=== PATIENT | female | born 1930 | race Caucasian/White ===

== ENCOUNTER 2018-01-15 14:38 | Inpatient (IN) ==
[2018-01-15] MEDS ORDERED: 0.9 % SODIUM CHLORIDE 1,000 ML IV ONE (14:45)
--- NOTE | 2018-01-15 14:52 | Emergency Department Note ---
General Adult HPI - General Chief complaint: Fall Stated complaint: abdominal pain, knee pain Time Seen by Provider: 01/15/18 14:50 Source: EMS Mode of arrival: EMS Limitations: no limitations - History of Present Illness HPI Narrative: Patient began having pain in her right lower abdomen where she has a ventral hernia this morning. Recently she was on the toilet and slipped off and fell. She denies nausea and vomiting. - Related Data Home Medications Medication Instructions Recorded Confirmed amlodipine 10 mg tablet 10 mg PO QDAY 08/29/15 01/15/18 cholestyramine (with sugar) 4 gram 4 g PO TID each 08/29/15 01/15/18 oral powder losartan 100 mg tablet 100 mg PO QDAY 08/29/15 01/15/18 magnesium hydroxide 400 mg/5 mL 30 ml PO QHS PRN 08/29/15 01/15/18 oral suspension calcium carbonate 500 mg calcium 1,000 mg PO TID tab 12/26/15 01/15/18 (1,250 mg) tablet acetaminophen 650 mg rectal 650 mg MI ONCE PRN 05/19/16 01/15/18 suppository hydralazine 10 mg tablet 10 mg PO ONCE PRN tab 05/19/16 01/15/18 bisacodyl 10 mg rectal suppository 10 mg MI ONCE PRN 03/24/17 01/15/18 cranberry fruit concentrate 450 mg 450 mg PO BID cap 03/24/17 01/15/18 capsule lactobacillus combination no.8 3 4,000 mmu cells PO QDAY 03/24/17 01/15/18 billion cell capsule magnesium oxide 400 mg tablet 400 mg PO BID 03/24/17 01/15/18 potassium citrate ER 10 mEq (1,080 40 meq PO BID tab 03/24/17 01/15/18 mg) tablet,extended release torsemide 20 mg tablet 40 mg PO QDAY 03/24/17 01/15/18 quetiapine 100 mg tablet 75 mg PO QHS tab 09/23/17 01/15/18 Previous Rx's Medication Instructions Recorded cholecalciferol (vitamin D3) 2,000 2,000 unit PO QDAY 30 Days #30 cap 09/24/15 unit capsule lorazepam 1 mg tablet 1 mg PO QAM #45 tab 01/03/18 hydrocodone 5 mg-acetaminophen 325 1 tab PO Q8H PRN #30 tab 01/09/18 mg tablet Allergies Allergy/AdvReac Type Severity Reaction Status Date / Time ofloxacin [OFLOXACIN] Allergy Severe STATES Verified 09/23/17 10:37 STARTS WITH ALL OVER RASH AND THEN SOB Amoxicillin [AMOXICILLIN] Allergy Unknown Unknown Verified 09/23/17 10:37 benazepril [BENAZEPRIL] Allergy Unknown Unknown Verified 09/23/17 10:37 bisoprolol [BISOPROLOL] Allergy Unknown Unknown Verified 09/23/17 10:37 cephalexin [CEPHALEXIN] Allergy Unknown Unknown Verified 09/23/17 10:37 clarithromycin Allergy Unknown Unknown Verified 09/23/17 10:37 [CLARITHROMYCIN] clindamycin [CLINDAMYCIN] Allergy Unknown Unknown Verified 09/23/17 10:37 Dicloxacillin [DICLOXACILLIN] Allergy Unknown Unknown Verified 09/23/17 10:37 diltiazem [DILTIAZEM] Allergy Unknown Unknown Verified 09/23/17 10:37 doxycycline [DOXYCYCLINE] Allergy Unknown Unknown Verified 09/23/17 10:37 hydrochlorothiazide Allergy Unknown Unknown Verified 09/23/17 10:37 [HYDROCHLOROTHIAZIDE] Labetalol [LABETALOL] Allergy Unknown Unknown Verified 09/23/17 10:37 levothyroxine sodium Allergy Unknown Unknown Verified 09/23/17 10:37 [LEVOTHYROXINE SODIUM] nitrofurantoin Allergy Unknown Unknown Verified 09/23/17 10:37 [NITROFURANTOIN] penicillin V [PENICILLIN V] Allergy Unknown Unknown Verified 09/23/17 10:37 pentoxifylline Allergy Unknown Unknown Verified 09/23/17 10:37 [PENTOXIFYLLINE] Review of Systems All systems ED: reviewed and negative except as stated. 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) Hypertensive renal disease (Chronic) Recurrent urinary tract infection (Chronic) CKD (chronic kidney disease), stage III (Chronic) Ventral hernia (Chronic) Brain tumor (Chronic) Urinary tract infection (Chronic) Urinary incontinence (Chronic) Spinal stenosis of lumbar region (Chronic) Irritable bowel syndrome (Chronic) Hypothyroidism (Chronic) Hypokalemia (Chronic) Hypertension (Chronic) Encephalitis (Chronic) Dermatitis (Chronic) Dementia (Chronic) Alzheimer disease (Chronic) Past Surgical History (Last Reviewed 09/23/17 @ 11:13 by Elle Villanueva MD) History of knee replacement (Chronic) H/O: hysterectomy (Chronic) History of hip surgery (Chronic) S/P hernia surgery (Chronic) H/O brain surgery (Chronic) Medical history: Reports: dementia, hypertension, renal disease, thyroid disease , other (brain tumor.recurrent urinary tract infection. Irritable bowel syndrome. Hypokalemia. Encephalitis. Alzheimer's disease. ) Surgical history ED: Reports: cholecystectomy, hysterectomy - Social History smoking status: Never smoker Physical Exam Limitations: no limitations General appearance: alert Head: atraumatic Eye: Present: normal appearance ENT: normal exam Neck: Present: normal inspection Chest: Present: normal inspection Respiratory: Present: normal lung sounds bilaterally Cardiovascular: Present: regular rate, normal rhythm, normal heart sounds Abdominal: Present: soft, distention, tenderness, hernia Abdominal tenderness: Present: RLQ, moderate Neurological: Present: alert Psychiatric: Present: normal affect, normal mood Skin: Present: warm, dry, intact Course Vital Signs Temperature 97.2 F 01/15/18 14:39 Pulse Rate 71 01/15/18 14:39 Respiratory Rate 14 01/15/18 14:39 Blood Pressure 160/104 01/15/18 14:39 Pulse Oximetry (%) 96 01/15/18 14:39 Temperature 98.2 F 01/16/18 04:01 Pulse Rate 87 01/16/18 04:01 Respiratory Rate 22 01/16/18 04:01 Blood Pressure 137/88 01/16/18 04:01 Pulse Oximetry (%) 97 01/16/18 04:01 Medical Decision Making - [facility] Narrative Medical decision making narrative: This patient has a very large incarcerated abdominal wall hernia without evidence of bowel obstruction. Is quite tender and nonreducible. Spoke with Dr. Martinez a surgeon he will come evaluate the patient. - Lab Data Lab results reviewed: Yes I reviewed the patient's lab results. Result diagrams: 01/16/18 04:00 01/16/18 04:00 Lab Results 01/15/18 01/15/18 01/15/18 Range/Units 14:57 14:57 17:15 WBC 7.2 (4.5-11.0) K/mcL RBC 5.10 (4.00-5.20) M/mcL Hgb 16.2 H (12.0-15.0) g/dL Hct 48.7 H (36.0-48.0) % POC Hct 50.0 H (36.0-48.0) % MCV 95.7 (80.0-100.0) fL MCH 31.7 (26.0-34.0) pg MCHC 33.2 (31.0-36.0) g/dL RDW 13.9 (11.5-14.5) % Plt Count 180 (140-440) K/mcL MPV 8.2 (7.4-10.4) fL Gran % 71.4 (38.0-78.0) % Lymph % (Auto) 17.2 (15.5-49.0) % [place] % (Auto) 8.3 (1.0-12.0) % Eos % (Auto) 2.7 (0.0-7.0) % Baso % (Auto) 0.4 (0.0-2.0) % Gran # 5.1 (1.8-8.0) K/mcL Lymph # (Auto) 1.2 L (1.5-4.8) K/mcL [place] # (Auto) 0.6 (0.1-0.9) K/mcL Eos # (Auto) 0.2 (0.0-0.7) K/mcL Baso # (Auto) 0 (0.0-0.3) K/mcL POC Sodium 139 (133-145) mmol/L Sodium 139 (133-145) mmol/L POC Potassium 4.3 (3.3-5.1) mmol/L Potassium 4.3 (3.3-5.1) mmol/L POC Chloride 103 (96-108) mmol/L Chloride 100 (96-108) mmol/L Carbon Dioxide 28 (22-30) mmol/L POC Total CO2 26 (22-30) mmol/L Anion Gap 11.0 (8-16) POC BUN 35 H (8-23) mg/dl BUN 31 H (8-23) mg/dl Creatinine 1.3 H (0.6-1.1) mg/dl POC Creatinine 1.4 H (0.6-1.1) mg/dl GFR Calculation 37 Glucose 148 H (70-105) mg/dL POC Glucose 147 H (70-105) mg/dL Calcium 9.0 (8.6-10.4) mg/dl POC WB Ioniz Calcium 1.07 L (1.16-1.32) mmol/L Total Bilirubin 0.2 (0.0-1.0) mg/dL AST 20 (0-37) U/l ALT 30 (0-40) U/l Alkaline Phosphatase 75 (39-117) U/L Total Protein 6.6 (5.9-8.4) gm/dL Albumin 3.8 (3.2-5.2) gm/dL Globulin 2.8 (2.2-3.7) gm/dL Albumin/Globulin Ratio 1.4 (1.0-2.3) Urine Color Straw Urine Appearance Hazy Urine pH 7.0 (5.0-9.0) Ur Specific [place] 1.010 (1.000-1.035) Urine Protein Neg (NEG) mg/dL Urine Glucose (UA) Negative (NEG) mg/dL Urine Ketones Neg (NEG) mg/dL Urine Occult Blood Neg (<0.03) mg/dL Urine Nitrate Neg (NEG) Urine Bilirubin Neg (NEG) mg/dL Urine Urobilinogen Neg (NEG) mg/dL Ur Leukocyte Esterase 500 A (NEG) /uL Urine RBC 2 H (0-1) /hpf Urine WBC 126 H (0-4) /hpf Ur Squamous Epith Cells 0 (0-4) /hpf Urine Bacteria 0 (0) /hpf Urine Mucus Few (0) /hpf Ur Culture Indicated? Yes - Radiology Data Radiology results reviewed: Yes I reviewed the patient's radiology results. Disposition Pt seen by BELL PERSON/PA only: No Clinical Impression: Ventral hernia Disposition: Xfer As Inpt ([facility]) Condition: Fair
[2018-01-15] MEDS ORDERED: ONDANSETRON 4 MG/2 ML VIAL ONE (15:04)
[2018-01-15] MEDS: ONDANSETRON 4 MG/2 ML VIAL IV ONE ×2 (15:08→15:09)
[2018-01-15] MEDS: HYDROmorphone 2 MG/ML VIAL IV PRN (15:09)
[2018-01-15 15:32] LABS: Basophils # (Auto) 0 K/mcL (0.0-0.3); Basophils % (Auto) 0.4 % (0.0-2.0); Eosinophils # (Auto) 0.2 K/mcL (0.0-0.7); Eosinophils % (Auto) 2.7 % (0.0-7.0); Granulocytes % (Auto) 71.4 % (38.0-78.0); Lymphocytes # (Auto) 1.2 K/mcL (1.5-4.8); Lymphocytes % (Auto) 17.2 % (15.5-49.0); Mean Cell Volume 95.7 fL (80.0-100.0); Mean Corpuscular HGB Conc 33.2 g/dL (31.0-36.0); Mean Corpuscular Hemoglobin 31.7 pg (26.0-34.0); Monocytes # (Auto) 0.6 K/mcL (0.1-0.9); Monocytes % (Auto) 8.3 % (1.0-12.0); Platelet Count 180 K/mcL (140-440); Red Cell Distribution Width 13.9 % (11.5-14.5)
[2018-01-15 15:54] LABS: ALT/SGPT 30 U/l (0-40); Albumin 3.8 gm/dL (3.2-5.2); Albumin/Globulin Ratio 1.4 (1.0-2.3); Alkaline Phosphatase 75 U/L (39-117); Blood Urea Nitrogen 31 mg/dl (8-23)
--- NOTE | 2018-01-15 16:09 | Cat Scan Report ---
CLINICAL INFORMATION: Abdominal pain and large ventral hernia COMPARISON: Abdomen and pelvic CT from nearly 2 years prior 03/10/2016. TECHNIQUE: 0.625 mm helical slices were obtained from the mid heart through the subtrochanteric regions. Following reconstruction, 2.5 mm sagittal, coronal and axial reformatted images were processed and reviewed at bone and soft tissue windows.The exam was performed using radiation dose optimization techniques including, but not limited to, automated exposure control, adjustment of the mA and/or kV according to patient size and use of iterative reconstruction technique. FINDINGS: Moderate cardiomegaly is unchanged. Moderate pericardial effusion has increased. Mild airspace disease in both peripheral lower lobes more likely represents atelectasis than developing infiltrates. No pleural effusions. Images through the abdomen show the noncontrasted liver to be unremarkable. Gallbladder and bile ducts are normal - CBD is 5 mm. Moderate atrophy of both kidneys with extensive vertebral medullary scarring is unchanged. Both noncontrasted adrenal glands, spleen, pancreas and aorta are unremarkable. Images through the pelvis show urinary bladder to be normal. Hysterectomy /oophorectomy changes are appreciated. Massive ventral wall hernia repair originating in the right inferior periumbilical region has increased in size from 15 cm to [address] nearly 2 years ago. The hernia contains both hypermobile cecum LAD terminal ileum and also a loop of small bowel. There is moderate edema in the mesentery of the hernia sac which could indicate ischemia/incarceration. There is mild dilatation of the small bowel just prior to the hernia entry site; however, the more proximal small bowel stomach are normal. There is no free air. Urinary bladder is unremarkable. Bone windows show multiple osteoporotic compression fractures which are stable radiographically from the previous study. The most severe, at T11, shows 50% loss of vertebral height. IMPRESSION: 1. Enlarging massive ventral wall hernia originating from abdominal wall defect in the right periumbilical region. It has increased from 15 cm to 20 cm since the comparison CT nearly 2 years prior. It contains a segment of hypermobile cecum/terminal ileum and a separate loop of small bowel. There is edema in the herniated mesentery within the sac suggesting the possibility of ischemia/incarceration. No definite evidence of bowel obstruction however. 2. Moderate cardiomegaly with moderate pericardial effusion - increasing 3. Moderate bilateral renal atrophy and extensive scarring in both kidneys compatible with remote infections or infarcts. No change 4. Multiple chronic osteoporotic compression fractures - most severe at T11 - no change radiographically Interpreted and Authenticated by: Bryan Pearson 01/15/18
[2018-01-15 17:47] LABS: Appearance,Urine HAZY; Bacteria,Urine 0 /hpf (0); Bilirubin,Urine NEG (NEG); Color,Urine STRAW; Glucose,Urine (UA) NEGATIVE (NEG); Leukocyte Esterase,Urine 500 /uL (NEG); Mucus,Urine FEW /hpf (0); Protein,Urine NEG (NEG); Urine Blood NEG mg/dL (<0.03); Urine RBC 2 /hpf (0-1); Urine Squamous Epithelial Cell 0 /hpf (0-4); Urine WBC 126 /hpf (0-4); Urobilinogen,Urine NEG (NEG)
[2018-01-15] MEDS ORDERED: ERTAPENEM 1 GM in 0.9 % SODIUM CHLORIDE 50 ML IV ONE (19:05)
--- NOTE | 2018-01-15 19:11 | Internal Medicine Consult Note ---
Medical - CN: HPI - Data of Consult Consult date: 01/15/18 Requesting Physician: Chelsey Martinez MD Primary Care Provider: Ventura Melendez Family Provider: Ventura Melendez - Consult Narrative Reason for consult: Medical evaluation in patient with incarcerated ventral hernia History of present illness: The patient is an 87-year-old female with a history of hypertension, chronic kidney disease stage III, congestive heart failure which is diastolic in nature , Alzheimer's disease, treated hypothyroidism presents to the emergency department from [facility] with abdominal pain. History is obtained in speaking with Dr. Martinez the consulting surgeon, Dr. Alvarez the ED physician, as well as the patient and her daughter. Records from her living facility are reviewed and summarized below, old records from this facility are obtained and summarized below. Family the patient had a fall today, but because of ongoing abdominal pain was brought to the emergency department for further evaluation. The patient has a known large ventral hernia, present for at least the last 2 years. When she first arrived, she was experiencing significant abdominal pain per Dr. Alvarez's report, and she did receive 0.5 mg of hydromorphone due to the ongoing pain. CT scan of the abdomen reveals incarcerated hernia, some mesenteric edema concerning for mesenteric compromise. When I and Dr. Martinez see the patient, she is complaining of abdominal discomfort, the exam is a bit equivocal, though she still is likely sparing seen some affect from hydromorphone. In regards to her congestive heart failure, echocardiogram in July 2016 showed left ventricular hypertrophy with normal systolic function. Patient currently denies any chest pain, chest tightness or squeezing. She denies any shortness of breath. She can sleep on her back without becoming short of breath , does not arise at night with dyspnea. She is noted no lower extremity edema. She has no history of coronary artery disease, no history of myocardial infarction. This is confirmed by her daughter. No history of lung disease, specifically no history of asthma, emphysema. In regards to her abdomen, she is complaining of discomfort, though tends to minimize her symptoms. Uncomfortable for her to try to bend at the waist and sit up in the gurney. She's had no nausea or vomiting. Otherwise, she denies to me any fevers or chills, headache, vision changes, cough or sputum production, focal neurologic symptoms, history of stroke or TIA (confirmed by her daughter). She has allergies listed to multiple antibiotics, however the patient is unaware what the reactions are. The only reaction the chart of significance which is listed is hives with ofloxacin. The remainder are listed as unknown. CC: Ventura Melendez M.D., Chelsey Martinez M.D. All systems: reviewed and no additional remarkable complaints except as stated Medical - CN: PMH Medical history: Ventral hernia (Chronic) Hypertension (Chronic) Hypertensive renal disease (Chronic) CKD (chronic kidney disease), stage III (Chronic) Chronic diastolic congestive heart failure Hypothyroidism (Chronic) Dementia (Chronic) Recurrent urinary tract infection (Chronic) H/O ESBL (extended spectrum beta-lactamase) producing bacteria infection ( Chronic) H/O Brain tumor (Chronic) Spinal stenosis of lumbar region (Chronic) Irritable bowel syndrome (Chronic) H/O Encephalitis (Chronic) Surgical history: History of knee replacement (Chronic) H/O: hysterectomy (Chronic) History of hip surgery (Chronic) S/P hernia surgery (Chronic) H/O brain surgery (Chronic)-brain tumor Pertinent family history: No premature coronary disease. Social history: Lives at [facility]. Never smoked, does not drink alcohol. Medical - CN: Meds Home Medications Medication Instructions Recorded Confirmed Type amlodipine 10 mg tablet 10 mg PO QDAY 08/29/15 01/15/18 History cholestyramine (with sugar) 4 gram 4 g PO TID each 08/29/15 01/15/18 History oral powder losartan 100 mg tablet 100 mg PO QDAY 08/29/15 01/15/18 History magnesium hydroxide 400 mg/5 mL 30 ml PO QHS PRN 08/29/15 01/15/18 History oral suspension cholecalciferol (vitamin D3) 2,000 2,000 unit PO QDAY 30 Days #30 cap 09/24/15 01/15/18 Rx unit capsule calcium carbonate 500 mg calcium 1,000 mg PO TID tab 12/26/15 01/15/18 History (1,250 mg) tablet acetaminophen 650 mg rectal 650 mg AL ONCE PRN 05/19/16 01/15/18 History suppository hydralazine 10 mg tablet 10 mg PO ONCE PRN tab 05/19/16 01/15/18 History bisacodyl 10 mg rectal suppository 10 mg AL ONCE PRN 03/24/17 01/15/18 History cranberry fruit concentrate 450 mg 450 mg PO BID cap 03/24/17 01/15/18 History capsule lactobacillus combination no.8 3 4,000 mmu cells PO QDAY 03/24/17 01/15/18 History billion cell capsule magnesium oxide 400 mg tablet 400 mg PO BID 03/24/17 01/15/18 History potassium citrate ER 10 mEq (1,080 40 meq PO BID tab 03/24/17 01/15/18 History mg) tablet,extended release torsemide 20 mg tablet 40 mg PO QDAY 03/24/17 01/15/18 History quetiapine 100 mg tablet 75 mg PO QHS tab 09/23/17 01/15/18 History lorazepam 1 mg tablet 1 mg PO QAM #45 tab 01/03/18 01/15/18 Rx hydrocodone 5 mg-acetaminophen 325 1 tab PO Q8H PRN #30 tab 01/09/18 01/15/18 Rx mg tablet Allergies Allergy/AdvReac Type Severity Reaction Status Date / Time ofloxacin [OFLOXACIN] Allergy Severe STATES Verified 09/23/17 10:37 STARTS WITH ALL OVER RASH AND THEN SOB Amoxicillin [AMOXICILLIN] Allergy Unknown Unknown Verified 09/23/17 10:37 benazepril [BENAZEPRIL] Allergy Unknown Unknown Verified 09/23/17 10:37 bisoprolol [BISOPROLOL] Allergy Unknown Unknown Verified 09/23/17 10:37 cephalexin [CEPHALEXIN] Allergy Unknown Unknown Verified 09/23/17 10:37 clarithromycin Allergy Unknown Unknown Verified 09/23/17 10:37 [CLARITHROMYCIN] clindamycin [CLINDAMYCIN] Allergy Unknown Unknown Verified 09/23/17 10:37 Dicloxacillin [DICLOXACILLIN] Allergy Unknown Unknown Verified 09/23/17 10:37 diltiazem [DILTIAZEM] Allergy Unknown Unknown Verified 09/23/17 10:37 doxycycline [DOXYCYCLINE] Allergy Unknown Unknown Verified 09/23/17 10:37 hydrochlorothiazide Allergy Unknown Unknown Verified 09/23/17 10:37 [HYDROCHLOROTHIAZIDE] Labetalol [LABETALOL] Allergy Unknown Unknown Verified 09/23/17 10:37 levothyroxine sodium Allergy Unknown Unknown Verified 09/23/17 10:37 [LEVOTHYROXINE SODIUM] nitrofurantoin Allergy Unknown Unknown Verified 09/23/17 10:37 [NITROFURANTOIN] penicillin V [PENICILLIN V] Allergy Unknown Unknown Verified 09/23/17 10:37 pentoxifylline Allergy Unknown Unknown Verified 09/23/17 10:37 [PENTOXIFYLLINE] Medical - CN: Exam - Constitutional Vitals: Temp Pulse Resp BP Pulse Ox 97.2 F 66 14 153/94 96 01/15/18 14:39 01/15/18 17:16 01/15/18 18:32 01/15/18 18:32 01/15/18 17:16 GENERAL: Alert, oriented to self, in no acute distress. Cooperative, appears stated age. HEENT: Atraumatic. PERRL, conjunctiva clear, no scleral icterus. Hearing grossly intact. Oropharynx with moist mucous membranes, no lip or gum lesions, no pharyngeal erythema or exudate. Tongue midline, palate rises symmetrically. NECK: Supple without meningismus, no thyromegaly RESPIRATORY: Breath sounds clear bilaterally without wheezes or rhonchi. Respiratory effort is unlabored. CARDIOVASCULAR: Regular rate and rhythm, no murmur gallop or rub appreciated. JVP at clavicle, trace peripheral edema. Carotid pulses 2+ without bruit. GI: Abdomen soft, RLQ periumbilical vental hernia is soft, mild TTP without guarding or rebound. Bowel sounds diminished. No hepatosplenomegaly appreciated, but examined bit limited by body habitus. LYMPHATIC: No cervical or supraclavicular lymphadenopathy MUSCULOSKELETAL: No joint erythema or swelling, healed left TKA scar, normal range of motion in extremities. Muscle mass normal for age. Strength 5/5 in the upper and lower extremities. SKIN: Intact, warm, dry. Skin turgor decreased. NEUROLOGIC: Cranial nerves II through XII grossly intact. Deep tendon reflexes 2+ at the biceps and patella. Sensation intact to light touch bilaterally. PSYCHIATRIC: Alert, oriented x to person, being in the hospital in [place] because she is "sick". She does not know the date, cannot recall the president. Displaced impairment of short and long-term recall. Increased insight into her condition. Medical - CN: Result - Labs CBC & Chem 7: 01/15/18 14:57 01/15/18 14:57 Labs: Short CBC 01/15/18 Range/Units 14:57 WBC 7.2 (4.5-11.0) K/mcL Hgb 16.2 H (12.0-15.0) g/dL Hct 48.7 H (36.0-48.0) % Plt Count 180 (140-440) K/mcL BMP 01/15/18 14:57 Sodium 139 Potassium 4.3 Chloride 100 Carbon Dioxide 28 BUN 31 H Creatinine 1.3 H Glucose 148 H Calcium 9.0 Liver Function 01/15/18 Range/Units 14:57 Total Bilirubin 0.2 (0.0-1.0) mg/dL AST 20 (0-37) U/l ALT 30 (0-40) U/l Alkaline Phosphatase 75 (39-117) U/L Albumin 3.8 (3.2-5.2) gm/dL Urine 01/15/18 Range/Units 17:15 Urine Color Straw Urine Appearance Hazy Urine pH 7.0 (5.0-9.0) Ur Specific [place] 1.010 (1.000-1.035) Urine Protein Neg (NEG) mg/dL Urine Glucose (UA) Negative (NEG) mg/dL - EKG Data -: EKG Reviewed by Myself (SR at 72, 1st degree AVB, bigeminy, no acute ST changes) - Impressions CTAP, reviewed IMPRESSION: 1. Enlarging massive ventral wall hernia originating from abdominal wall defect in the right periumbilical region. It has increased from 15 cm to 20 cm since the comparison CT nearly 2 years prior. It contains a segment of hypermobile cecum/terminal ileum and a separate loop of small bowel. There is edema in the herniated mesentery within the sac suggesting the possibility of ischemia/incarceration. No definite evidence of bowel obstruction however. 2. Moderate cardiomegaly with moderate pericardial effusion -increasing 3. Moderate bilateral renal atrophy and extensive scarring in both kidneys compatible with remote infections or infarcts. No change 4. Multiple chronic osteoporotic compression fractures - most severe at T11 - no change radiographically - Imaging and Cardiology Chest x-ray Status: image reviewed by me (Cardiomegaly) Medical - CN: A/P - Narrative A/P Narrative: 87-year-old female with history of hypertension, hypertensive kidney disease with CKG stage III, congestive heart failure with preserved ejection fraction who presents with abdominal pain. Ventral hernia, incarcerated, query strangulation. Definitive management per Dr. Martinez. Exam is a bit difficult after receiving hydromorphone, though reports she was clearly tender at presentation over the hernia. She likely will need to have operative intervention, particularly given the mesenteric edema noted on CT. Final decision on operative management is deferred to surgery. Her revised cardiac risk index is moderate risk. However currently her heart failure is well compensated, no jugular venous distention, clear lungs, no evidence of volume overload. He has no history of underlying chronic lung disease. He has no history of coronary disease. At this point given the need for surgery, further risk stratification and not preclude going to the OR. Her last echocardiogram was approximately 18 months ago showing normal left ventricular systolic function, though she would be at risk for volume overload with her left ventricular hypertrophy and diastolic dysfunction. Recommendation: Careful attention to fluid balance, may be prone to volume overload. Would benefit from closer monitoring and telemetry setting and the postoperative state. Regarding antibiotic choice with her multiple allergies, a carbapenem should be of low risk for cross-reactivity with penicillins ( unknown severity of allergy and patient can't give history). Her history of ESBL organisms (noted in chart) also favors carbapenems. Moderate pericardial effusion. Patient is hemodynamically stable. Etiology unclear, patient does not have significant uremia that could explain an effusion. It is not compromising cardiac function. Recommendation: Monitor Chronic diastolic congestive heart failure. Currently appears compensated, as noted above. Recommendation: Monitor I/O with close attention to fluid balance. Hypertension. The patient is nothing by mouth postoperatively, she could be treated with as needed doses of hydralazine or enalapril intravenously. Recommendation: Will follow and help manage. Chronic kidney disease stage III. Her creatinine is stable. Recommendation: Avoid nephrotoxins, renally dose medications. Will follow and help manage. Dementia. Would be at risk for postop delirium. She is on risperidone at her living facility. Recommendation: Frequent reorientation, avoid benzodiazepines if possible, as soon as possible resume her risperidone Will continue to follow.
[2018-01-15] MEDS ORDERED: GLYCOPYRROLATE 0.2 MG/ML VIAL IV ONE (20:10)
[2018-01-15] MEDS ORDERED: DEXAMETHASONE 10 MG/ML VIAL IV ONE (20:10)
[2018-01-15] MEDS ORDERED: MIDAZOLAM 2 MG/2 ML VIAL IV ONE (20:10)
[2018-01-15] MEDS ORDERED: fentaNYL 250 MCG/5 ML VIAL IV ONE (20:10)
[2018-01-15] MEDS ORDERED: PHENYLEPHRINE 10 MG/ML VIAL IV ONE (20:10)
[2018-01-15] MEDS ORDERED: ONDANSETRON 4 MG/2 ML VIAL IV ONE (20:10)
[2018-01-15] MEDS ORDERED: PROPOFOL 200 MG/20 ML VIAL IV ONE (20:10)
[2018-01-15] MEDS ORDERED: KETAMINE 100 MG/ML ML IV ONE (20:10)
[2018-01-15] MEDS ORDERED: ePHEDrine 50 MG/ML AMPUL IV ONE (20:10)
[2018-01-15] MEDS ORDERED: ROCURONIUM 10 MG/ML ML IV ONE (20:10)
[2018-01-15] MEDS ORDERED: LIDOCAINE HCL/PF 100 MG/5 ML SYRINGE IV ONE (20:10)
[2018-01-15] MEDS ORDERED: NEOSTIGMINE 1 MG/ML VIAL IV ONE (20:10)
[2018-01-15] MEDS ORDERED: HEPARIN 5,000 UNIT/ML VIAL SQ ONE (20:38)
[2018-01-15] MEDS ORDERED: BACITRACIN 50,000 UNIT VIAL IR ONE (20:38)
[2018-01-15] MEDS ORDERED: ONDANSETRON 4 MG/2 ML VIAL IV PRN (21:48)
[2018-01-15] MEDS ORDERED: FLUMAZENIL 0.1 MG/ML ML IV PRN (21:48)
[2018-01-15] MEDS ORDERED: NALOXONE HCL 0.4 MG/ML VIAL IV PRN (21:48)
[2018-01-15] MEDS ORDERED: BENZOCAINE/MENTHOL 1 LOZENGE PO PRN (21:48)
[2018-01-15] MEDS ORDERED: ACETAMINOPHEN 1,000 MG/100 ML BOTTLE IV ONE (21:48)
[2018-01-15] MEDS ORDERED: IPRATROPIUM/ALBUTEROL 3 ML AMPUL.NEB NEB PRN (21:48)
[2018-01-15] MEDS ORDERED: LACTATED RINGERS 250 ML IV PRN (21:48)
[2018-01-15] MEDS ORDERED: fentaNYL 100 MCG/2 ML VIAL IV PRN (21:48)
[2018-01-15] MEDS ORDERED: LACTATED RINGERS 1,000 ML IV SCH (22:00)
--- NOTE | 2018-01-15 22:56 | Consultation ---
DATE OF CONSULTATION: 01/15/2018 CHIEF COMPLAINT: The patient is seen in consultation at the request of Dr. Alvarez for a painful incarcerated ventral hernia. HISTORY OF PRESENT ILLNESS: The patient is an 87-year-old woman who presented to [facility] this afternoon with complaints of a fall. History is taken primarily from nursing staff and specifically from nursing staff at the care facility where she is residing. Apparently the patient was transferring from her chair into the restroom earlier today and she suffered a fall. She initially after falling complained to the nursing staff of pain in her elbow and seemed to be otherwise doing well. As the day progressed, the patient, however, started to complain of pain and persistently complained of pain at the site of her longstanding ventral hernia. When this area was assessed by nursing staff, they state that the area looked enlarged compared to usual and the patient was tender. They state that she described her pain as an 8/10 at the time when they decided to bring her into the emergency department. The patient confirms that she did fall and that she was having pain today. It should be noted, however, prior to my evaluation she was medicated with Dilaudid in the emergency department so she currently is not describing significant pain in her abdomen. She denies any episodes of vomiting today. On admission to the emergency department, patient was evaluated by Dr. Alvarez, the ER physician. He states that she was very tender on examination and nursing staff also states that the patient was complaining of pain at the site of her hernia and was requesting pain medication, for which they medicated her with Dilaudid. PAST MEDICAL HISTORY: History of heart failure, compensated. Chronic kidney disease. Dementia. Prior abdominal surgery for bowel obstruction. Prior section. Hypertension. IBS. Chronic bladder infections. MEDICATIONS: Amlodipine 10 mg by mouth every day. Cholestyramine 4 grams by mouth 3 times a day. Losartan 100 mg by mouth daily. Magnesium hydroxide 30 mL by mouth at bedtime. Cholecalciferol 2000 units every day. Calcium carbonate 500 mg 2 tablets by mouth 3 times a day. Hydralazine 10 mg as needed. Dulcolax 10 mg as needed. Lactobacillus daily. Potassium citrate extended release 10 mEq 4 pills twice daily. Torsemide 20 mg tablets 2 pills every day. Quetiapine 75 mg by mouth at bedtime. Lorazepam 1 mg every morning. [place] 5/325 one tablet every 8 hours as needed for pain. ALLERGIES: The patient reports multiple allergies to antibiotics including OFLOXACIN, AMOXICILLIN, CEPHALEXIN, CLARITHROMYCIN, CLINDAMYCIN, DICLOXACILLIN, DOXYCYCLINE, and PENICILLIN. Much of these allergies are listed as unknown, however, the OFLOXACIN allergy is listed as starting with a rash all over and then developing shortness of breath. Additional allergies listed include BENAZEPRIL, BISOPROLOL, DILTIAZEM, HYDROCHLOROTHIAZIDE, LABETALOL, LEVOTHYROXINE, PENTOXIFYLLINE and NITROFURANTOIN. REVIEW OF SYSTEMS: Cardiovascular: The patient currently denies any chest pain or pressure. Pulmonary: Denies any shortness of breath or recent cough. GI: Abdominal pain as per above. PHYSICAL EXAMINATION: VITAL SIGNS: Temperature 97.2, pulse 66, respirations 14, blood pressure 147/73. GENERAL APPEARANCE: The patient is an elderly woman who appears her stated age. She is not distressed and actually appears comfortable, though she was medicated prior to my arrival with pain medication. She is able to be awakened and conversant in this examination. Some of her answers are unclear, but most are appropriate. HEENT: Head is normocephalic. Sclerae are white. Mucous membranes are moist. CHEST: Breath sounds are clear in the upper shaikh bilaterally, diminished at the bases bilaterally. CARDIOVASCULAR: Regular rhythm with occasional intermittent irregular beat. ABDOMEN: Obese. There is a large bulge in the right side of the abdomen. Palpation of this area reveals it to be soft with palpable underlying tissue consistent with bowel. There are no changes of the overlying skin. Palpation of this area results in reported pain by the patient, sometimes more than others, but she does report pain when this area is palpated. Palpation of other areas of the abdomen reveals it to be soft without any tenderness. No other hernias are noted on exam, though this can be difficult to fully appreciate due to body habitus. There is a vertical midline scar well healed from prior surgery. In the intertriginous fold at the base of the abdomen, there is some redness and excoriation consistent with skin irritation from retained moisture. EXTREMITIES: Warm without edema. DP pulses are palpable easily bilaterally. LABS AND STUDIES: CBC drawn in the emergency department shows normal white blood cell count of 7.2, hemoglobin 16.2 and hematocrit 48.7, platelets are 180. Serum chemistry shows sodium of 139, potassium 4.3, chloride 100, carbon dioxide 28, BUN 31, creatinine 1.3, glucose 148, calcium 9.0, total bilirubin 0.2, AST 20, ALT 30, alkaline phosphatase 75, total protein 6.6, albumin 3.8. Urinalysis was obtained in the emergency department showing 500 leukocyte esterase, 2 red blood cells and 126 white blood cells, no bacteria noted. Urine is reflex to culture. CT scan of the abdomen and pelvis was performed while she was being evaluated in the emergency department. I have reviewed the images and the report from this scan. I have also discussed results with the radiologist. CT scan was compared to images from a CT scan in 2016. The patient did have a ventral hernia at that time. However, there are changes on most recent scan that are concerning. Overall size of the hernia has increased from CT scan from 2 years ago. There is noted to be a segment of hypermobile cecum and terminal ileum and a separate loop of small bowel. Additional finding is edema in the herniated mesentery within the sac suggesting possibility of ischemia. There is no definite evidence of bowel obstruction on current images. I discussed the findings with the radiologist, most specifically this finding of edema. On review of the images, this is a new finding compared to prior studies and he is concerned that this may represent beginning of compromise of the area that is herniated. ASSESSMENT AND PLAN: Incarcerated ventral hernia with increased size and pain after fall earlier today. The patient's exam unfortunately is somewhat equivocal due probably in part to receipt of pain medication prior to this evaluation. The patient, however, does report that the hernia is bothersome and does report tenderness on palpation in this area. I discussed the findings on imaging with the patient and her daughter, who is the patient's medical power of attorney law clerk. Findings that are suggestive of developing ischemia in the bowel are worrisome and surgical reduction and repair of the hernia is recommended to avoid complications of bowel compromise. The nature of this potential progression as well as the risks of surgery and its benefits were discussed with the patient and her daughter. The patient's comorbid conditions do increase her risk of perioperative complications. Concern, however, is that if these findings truly do represent early signs of developing ischemia, then by the time the patient does show symptoms she will be in a worse physiologic state and what would otherwise be repair of a hernia could turn into a much larger operation requiring resection of the bowel. After reviewing the risks and benefits of surgery and consulting with the hospitalist for evaluation and also help in identifying perioperative risk, the patient has stated that she understands risks of surgery and would like to proceed. The patient's daughter has also verbalized understanding of the perioperative risks as well as the risks of not operating and agrees to proceed with surgical management and repair of the hernia. Risks of surgery as outlined include but are not limited to bleeding, infection, infection which can involve the mesh and require removal at a later date, injury to underlying bowel, possible bowel resection if underlying bowel is compromised, and risks of general anesthesia. Operating crew has been called in and we will proceed to the operating room as soon as it is ready. RC:betty Job ID: [id number] Doc ID: [id number] Chelsey Martinez MD
[2018-01-15] MEDS ORDERED: hydrALAZINE 20 MG/ML VIAL IV PRN (23:26)
--- NOTE | 2018-01-15 23:56 | Brief Operative Note ---
Date of procedure: 01/15/18 Pre-op diagnosis: incarcerated ventral hernia Post-op diagnosis: same Procedure: repair of incarcerated ventral hernia with gore lorenzo mesh Anesthesia: GETA Findings: incarcerated hernia with narrow neck containing right colon terminal ileum and part of mid small bowel with mesenteric and serosal edema. No ischemia. Complications: none Surgeon: Chelsey Martinez Estimated blood loss (cc): 20 Specimens Removed/Pathology: other (portion of hernia sac) Condition: stable Disposition: PACU
[2018-01-16] MEDS ORDERED: ACETAMINOPHEN 650 MG/65 ML BOTTLE IV PRN (00:25)
[2018-01-16] MEDS ORDERED: ERTAPENEM 1 GM in 0.9 % SODIUM CHLORIDE 50 ML IV SCH (00:25)
[2018-01-16] MEDS ORDERED: hydrALAZINE 20 MG/ML VIAL IV PRN (00:25)
[2018-01-16] MEDS ORDERED: ONDANSETRON 4 MG/2 ML VIAL IV PRN (00:25)
[2018-01-16] MEDS: DEXTROSE 5%-LR 1,000 ML IV SCH ×2 (01:16→20:01)
[2018-01-16] MEDS: HYDROmorphone 2 MG/ML VIAL IV PRN (02:08)
[2018-01-16] MEDS ORDERED: fentaNYL 100 MCG/2 ML VIAL IV ONE (04:28)
[2018-01-16 05:08] LABS: Basophils # (Auto) 0 K/mcL (0.0-0.3); Basophils % (Auto) 0 % (0.0-2.0); Eosinophils # (Auto) 0.4 K/mcL (0.0-0.7); Eosinophils % (Auto) 2.7 % (0.0-7.0); Granulocytes % (Auto) 91.9 % (38.0-78.0); Lymphocytes # (Auto) 0.5 K/mcL (1.5-4.8); Lymphocytes % (Auto) 3.4 % (15.5-49.0); Mean Cell Volume 96.2 fL (80.0-100.0); Mean Corpuscular HGB Conc 33.3 g/dL (31.0-36.0); Mean Corpuscular Hemoglobin 32.1 pg (26.0-34.0); Monocytes # (Auto) 0.3 K/mcL (0.1-0.9); Platelet Count 177 K/mcL (140-440); RBC 5.13 M/mcL (4.00-5.20); Red Cell Distribution Width 13.9 % (11.5-14.5)
[2018-01-16 05:19] LABS: ALT/SGPT 30 U/l (0-40); Albumin 3.8 gm/dL (3.2-5.2); Albumin/Globulin Ratio 1.3 (1.0-2.3); Alkaline Phosphatase 71 U/L (39-117); Bilirubin,Direct < 0.2 mg/dL (0.0-0.3); Blood Urea Nitrogen 24 mg/dl (8-23); Gamma Glutamyl Transpeptidase 74 U/L (5-36); Uric Acid 5.9 mg/dL (2.5-8.0)
--- NOTE | 2018-01-16 07:04 | XRay Report ---
CLINICAL INFORMATION: Preop COMPARISON: 04/23/2016 FINDINGS: The heart is moderately enlarged, but unchanged. Ectatic thoracic aorta is noted. The remaining mediastinum and pulmonary vessels are normal. There is minor bibasilar atelectasis. No cherelle infiltrates or effusions IMPRESSION: Moderate stable cardiomegaly. Minor bibasilar atelectasis Interpreted and Authenticated by: Bryan Pearson 01/16/18
--- NOTE | 2018-01-16 08:36 | General Surgery Progress Note ---
Surgical - Auxillary Note - Subjective Patient Information: Note initiated : 01/16/18 at 8:25 am Service Date, if different from initiated Date: 01/15/18 Patient: Carey Gomez 87 y/o F admitted on 01/16/18 for abdominal pain, knee pain. Chief Complaint: Hypoxia 2258: Patient brought to PACU at 2258pm on 01/15/18 with stable vital signs at preoperative baseline on 6L simple mask with oral airway in place. Oxygen saturations 89-94%. Patient's oxygen saturations in ER on 4L nasal cannula were 90-94% and dropped to 86-88% on room air when weaned off supplemental O2. Myself and Dr. Martinez at bedside in PACU. Discussed patient being at baseline vitals and agreement made that we would like to see higher oxygen saturations. 2330: Patient arousable, able to follow simple commands, states name and birthday and daughters name but is not oriented to time or place which is also not unusual for patient's baseline mental status. Oxygen saturations continue to be 89-94% on 6L simple mask. Discussion with Dr. Martinez about possible placement on CPAP/BiPAP for extra support. Agreement made to consult respiratory therapy. 0100: RT placed patient on BiPAP. Patient remains at baseline vital signs. Patient taken to inpatient room 120-A. Family, daughter Rachel, updated on anesthesia status and course of treatment. Will continue to follow patient perioperatively.
--- NOTE | 2018-01-16 09:25 | Operative Note ---
DATE OF OPERATION: 01/16/2018 Date of Procedure: 01/15/2018 PREOPERATIVE DIAGNOSIS: Incarcerated ventral hernia. POSTOPERATIVE DIAGNOSES: Incarcerated ventral incisional hernia with edematous bowel and some congestion but no bowel compromise. PROCEDURE PERFORMED: Reduction and repair of ventral incisional hernia with [place] DualMesh. SURGEON: Chelsey Martinez M.D. ANESTHETIC: General endotracheal anesthesia. ESTIMATED BLOOD LOSS: 20 mL. SPECIMEN: Portion of hernia sac. IV FLUIDS: 1500 mL. INDICATIONS FOR PROCEDURE: The patient is an 87-year-old woman who presented to the emergency department with complaints of abdominal pain that occurred after she had a fall earlier in the day. She started to complain of abdominal pain while in her nursing care facility, and nursing staff noted that the area of a chronic ventral hernia was increased in size. The patient's pain being persistent prompted transfer to the emergency department. In the emergency department, the patient complained of pain at the site of her hernia and was tender on exam. CT scan showed the chronic hernia with increased size as compared to CT imaging from 2 years ago. There was no definite sign of bowel obstruction, but there was mesenteric edema and fluid within the hernia sac that was a new change concerning for developing ischemia from the incarceration. The patient was brought to the operating room for repair of her hernia. FINDINGS: The hernia defect was small as compared to the amount of herniated tissue measuring approximately 4 cm. The hernia sac contained large bowel, including the cecum and part of the right colon, the terminal ileum and another loop of small bowel. Bowel that was within the sac had some edema within its mesentery and serosal surfaces. One loop of small bowel had some congestion which promptly resolved after reduction of the bowel from the hernia defect. There was no sign of bowel ischemia. DESCRIPTION OF PROCEDURE: After obtaining informed consent, the patient was taken to the operating room where a time-out was taken to confirm that she was here for the above-stated procedure. She was given antibiotics preoperatively and SCDs were placed for DVT prophylaxis. She was also given subcutaneous heparin preoperatively. She was placed in the supine position on the operating table and general endotracheal anesthesia was induced. The abdomen was entered via an infraumbilical incision through the scar from prior surgery. Dissection was carried down through subcutaneous tissues to the level of the abdominal wall fascia. The edge of the hernia sac could be palpated to the right of the midline of the fascia. Attempts at trying to find the fascial edge from lateral to the hernia defect were difficult though parts of the sac could be seen with dissection. The midline incision was therefore extended superiorly to the right of the umbilicus and dissection carried down through the subcutaneous tissues to the fascia for the rest of the extension of the incision. The abdominal wall fascia was then entered just above the area of where the hernia could be felt. This allowed easy access into the peritoneal cavity with easy access to the edge of the hernia defect. Upon entering the peritoneal cavity, serous fluid was encountered. The edge of the hernia defect was opened using electrocautery, taking care to protect the internal hernia contents. This resulted in release of the fascial ring that was encircling the defect, and the bowel was easily able to be pulled once this fascia was released. The bowel that was removed is as described above in the findings section consisting of both small and large bowel. The bowel was brought out of the hernia sac which was a very large sac extending for several inches to the right of midline. Once the bowel was reduced back into the abdominal cavity, the hernia defect was inspected. Its edges were delineated and grasped with clamps for eventual hernia repair. Next, the hernia sac was excised from the subcutaneous tissues. The hernia sac was left intact in most part and used to close the peritoneum entirely over the bowel that had been reduced into the abdomen. The peritoneum was circumferentially dissected away from the abdominal wall fascia to allow space in which to place mesh to fix the defect. The initial defect was approximately 4 cm but was enlarged to about 6 cm due to extension of the incision superiorly to allow access upon entering the abdomen. The defect was fitted with a piece of [place] DualMesh which was secured circumferentially on the undersurface of the abdominal wall fascia but above the peritoneum using interrupted Prolene sutures. Once the mass was secured circumferentially, the wound was irrigated with a bacitracin saline solution and suctioned of the irrigant. A 7 flat Saúl drain was placed into the right abdominal wall subcutaneous space in the area where the hernia sac was previously. The drain was left exiting the lateral aspect of this cavity to keep it decompressed while healing. It was connected to bulb suction. Drain was secured to the skin with a 3-0 nylon suture. The subcutaneous tissues of the abdominal incision were approximated with interrupted Vicryl sutures. The skin was then closed with skin ian. Sponge and instrument counts were correct at the end of the case. The patient was extubated in the operating room and transferred to PACU in stable condition. RC:[email or web address] Job ID: [id number] Doc ID: [id number] Chelsey Martinez MD
[2018-01-16] MEDS: HEPARIN 5,000 UNIT/ML VIAL SQ SCH ×2 (10:21→20:14)
[2018-01-16] MEDS: fentaNYL 100 MCG/2 ML VIAL IV PRN ×3 (10:21→20:12)
[2018-01-16] MEDS: ERTAPENEM 1 GM in 0.9 % SODIUM CHLORIDE 50 ML IV SCH (10:22)
--- NOTE | 2018-01-16 10:42 | Internal Med Progress Note ---
Medical - PN: Subj Patient information: Note initiated : 01/16/18 at 10:39 am Service Date, if different from initiated Date: [] Patient: Carey Gomez 87 y/o F admitted on 01/16/18 for abdominal pain, knee pain. Chief Complaint: f/u hernia repair Interval history: 01/15 The patient is an 87-year-old female with a history of hypertension, chronic kidney disease stage III, congestive heart failure which is diastolic in nature , Alzheimer's disease, treated hypothyroidism presents to the emergency department from [facility] with abdominal pain. Family the patient had a fall today, but because of ongoing abdominal pain was brought to the emergency department for further evaluation. The patient has a known large ventral hernia, present for at least the last 2 years. When she first arrived, she was experiencing significant abdominal pain per Dr. Alvarez's report, and she did receive 0.5 mg of hydromorphone due to the ongoing pain. CT scan of the abdomen reveals incarcerated hernia, some mesenteric edema concerning for mesenteric compromise. When I and Dr. Martinez see the patient, she is complaining of abdominal discomfort, the exam is a bit equivocal, though she still is likely sparing seen some affect from hydromorphone. In regards to her congestive heart failure, echocardiogram in July 2016 showed left ventricular hypertrophy with normal systolic function. Patient currently denies any chest pain, chest tightness or squeezing. She denies any shortness of breath. She can sleep on her back without becoming short of breath , does not arise at night with dyspnea. She is noted no lower extremity edema. She has no history of coronary artery disease, no history of myocardial infarction. This is confirmed by her daughter. No history of lung disease, specifically no history of asthma, emphysema. In regards to her abdomen, she is complaining of discomfort, though tends to minimize her symptoms. Uncomfortable for her to try to bend at the waist and sit up in the gurney. She's had no nausea or vomiting. Otherwise, she denies to me any fevers or chills, headache, vision changes, cough or sputum production, focal neurologic symptoms, history of stroke or TIA (confirmed by her daughter). She has allergies listed to multiple antibiotics, however the patient is unaware what the reactions are. The only reaction the chart of significance which is listed is hives with ofloxacin. The remainder are listed as unknown. 01/16 Tolerated surgery well, hernia or is repaired with ventral mesh placed. Postoperatively she had hypoxic respiratory failure, required BiPAP therapy overnight. That was on until about 445, when she was awake enough to remove the mask on her own, is maintaining saturations since then. When I see her this morning, she asks "I had surgery?" When I discussed the events of yesterday. She complains of some abdominal discomfort, but not severe pain. Denies any dyspnea. Has to be reminded several times of why she is in the hospital and what has occurred in the last day. Denies any chest pain , denies any shortness of breath, some abdominal pain but tends to minimize it. - Constitutional Vitals: Vital Signs Temp Pulse Resp BP Pulse Ox 98.2 F 87 22 137/88 97 01/16/18 04:01 01/16/18 04:01 01/16/18 04:01 01/16/18 04:01 01/16/18 04:01 Period Temp Pulse Resp BP Sys/Morillo Pulse Ox Last 24 Hr 97.2 F-98.5 F 29-88 13-27 111-161/54-117 87-98 Intake and Output 01/15/18 01/16/18 01/16/18 21:59 05:59 13:59 Intake Total 1000 / 1000 2650 / 2650 65 / 65 Output Total 720 / 720 Balance 1000 / 1000 1929 65 Weight 211 lb 207 lb 14.4 oz General: Laying in bed, looks comfortable, awake Chest: Bases clear, respirations unlabored Cardiovascular: Regular, no peripheral edema Abdomen: Soft, no bowel sounds, dressings are intact and dry, sanguinous drainage and the Ruddy-Joyce. Neuro: Alert, oriented to self, not date, situation. Intake & Output: Intake & Output 01/15/18 01/16/18 01/16/18 21:59 05:59 13:59 Intake Total 1000 / 1000 2650 / 2650 65 Output Total 720 / 720 Balance 1000 / 1000 1929 65 / 65 Weight 211 lb 207 lb 14.4 oz Intake: IV 1000 / 1000 1150 / 1150 / Sodium Chloride 0.9% 1,000 ml @ 1000 / 1000 Wide Open IV B[facility] Rx#: [id number] IV - Manual Only 1500 / 1500 Output: Drainage 50 / 50 Right Abdomen 50 / 50 Urine Catheter Amount 650 / 650 Estimated Blood Loss Medical - PN: Obj Da - Labs CBC & Chem 7: 01/16/18 04:00 01/16/18 04:00 Labs: Abnormal Lab Results 01/16/18 01/16/18 01/15/18 04:00 04:00 17:15 WBC 13.4 H Hgb 16.5 H Hct 49.4 H POC Hct Gran % 91.9 H Lymph % (Auto) 3.4 L Gran # 12.3 H Lymph # (Auto) 0.5 L POC BUN BUN 24 H Creatinine 1.2 H POC Creatinine Glucose 180 H POC Glucose POC WB Ioniz Calcium GGT 74 H Lactate Dehydrogenase 269 H Ur Leukocyte Esterase 500 A Urine RBC 2 H Urine WBC 126 H 01/15/18 01/15/18 14:57 14:57 WBC Hgb 16.2 H Hct 48.7 H POC Hct 50.0 H Gran % Lymph % (Auto) Gran # Lymph # (Auto) 1.2 L POC BUN 35 H BUN 31 H Creatinine 1.3 H POC Creatinine 1.4 H Glucose 148 H POC Glucose 147 H POC WB Ioniz Calcium 1.07 L GGT Lactate Dehydrogenase Ur Leukocyte Esterase Urine RBC Urine WBC Meds: Medications Fentanyl (Sublimaze) 12.5 - 25 mcg IV Q2HP PRN PRN Reason: PAIN LEVEL > 6 Last Admin: 01/16/18 10:21 Dose: 12.5 mcg Heparin Sodium (Porcine) (Heparin) 5,000 unit SQ Q12 [facility] Last Admin: 01/16/18 10:21 Dose: 5,000 unit Hydralazine HCl (Apresoline) 10 mg IV Q4HP PRN PRN Reason: Hypertension Dextrose/Lactated Ringer's (Dextrose 5%-Lactated Ringers) 1,000 mls @ 50 mls/ hr IV .Q20H [facility] Last Admin: 01/16/18 01:16 Dose: 50 mls/hr Acetaminophen (Ofirmev) 650 mg in 65 mls @ 130 mls/hr IV Q6HP PRN PRN Reason: PAIN/FEVER > 101 Last Infusion: 01/16/18 06:05 Dose: Infused Ertapenem 1 gm/ Sodium (Chloride) 50 mls @ 100 mls/hr IV DAILY [facility] Last Admin: 01/16/18 10:22 Dose: 100 mls/hr Ondansetron HCl (Zofran) 4 mg IV Q8HP PRN PRN Reason: Nausea And Vomiting Medical - PN: A/P - Time Spent With Patient Total time spent is greater than 50% in coordination of care (as documented) at patient's floor/unit and/or counseling patient: Greater than 35 minutes (1) Incarcerated ventral hernia Status: Acute Current Visit: Yes (2) CKD (chronic kidney disease), stage III Status: Chronic Current Visit: No (3) Hypothyroidism Status: Chronic Current Visit: No (4) Hypertension Problem details: well controlled ct current medications follow low sodium diet Status: Chronic Current Visit: No (5) Dementia Status: Chronic Current Visit: No - Narrative A/P Narrative: Ventral hernia, incarcerated, query strangulation. Now status post repair by Dr. Martinez. Postop day #1. Postoperative management per surgery. Recommendation: Continue with careful attention to fluid balance, may be prone to volume overload. Continue telemetry monitoring. Continue ertapenem ( multiple allergies, also has h/o ESBL infections). Acute hypoxic respiratory failure. Improved. Likely secondary to lingering effects of anesthesia and depression of respiratory drive. Recommendation: Continue supplemental oxygen, incentive spirometry, BiPAP when necessary though I believe she will no longer require this. Chronic diastolic congestive heart failure. Currently appears compensated. Recommendation: Monitor I/O with close attention to fluid balance. Hypertension. On several oral meds, now NPO. Recommendation: PRN IV hydralazine ordered, will follow. Abnormal urine analysis, history of frequent urinary tract infections. Pyuria and bacteriuria on urinalysis, culture pending. On ertapenem to cover abdominal surgery, should also cover any urinary organisms. Recommendation: Continue ertapenem until cultures are finalized from the urine. Hypothyroidism, on replacement. Recommendation: Will dose intravenous levothyroxine. Chronic kidney disease stage III. Her creatinine is stable. Recommendation: Avoid nephrotoxins, renally dose medications. Will follow. Dementia. Would be at risk for postop delirium. She is on risperidone at her living facility. Recommendation: Frequent reorientation, avoid benzodiazepines if possible, as soon as possible resume her risperidone Moderate pericardial effusion. Patient is hemodynamically stable. Etiology unclear. Recommendation: Monitor Will continue to follow. Medical - PN: Qual - VTE Deep Vein Thrombosis/Pulmonary Embolism Present on Admission: No
[2018-01-16 14:56] LABS: Basophils # (Auto) 0 K/mcL (0.0-0.3); Basophils % (Auto) 0 % (0.0-2.0); Eosinophils # (Auto) 0.3 K/mcL (0.0-0.7); Granulocytes % (Auto) 88.5 % (38.0-78.0); Lymphocytes # (Auto) 0.5 K/mcL (1.5-4.8); Mean Cell Volume 96.3 fL (80.0-100.0); Mean Corpuscular Hemoglobin 31.7 pg (26.0-34.0); Monocytes # (Auto) 0.7 K/mcL (0.1-0.9); Monocytes % (Auto) 5.5 % (1.0-12.0); Platelet Count 174 K/mcL (140-440); Red Cell Distribution Width 14.3 % (11.5-14.5)
--- NOTE | 2018-01-16 15:59 | General Surgery Progress Note ---
Subjective Patient reports: feels better, still having pain, no flatus, no bowel movement, afebrile Narrative: Note initiated : 01/16/18 at 3:57 pm Service Date, if different from initiated Date: [] Patient: Carey Gomez 87 y/o F admitted on 01/16/18 for abdominal pain, knee pain. Chief Complaint: [Postoperative day 1:-- patient is doing well. She is pleasantly confused and has no memory of her operative procedure. She denies nausea. She denies chest pain or shortness of breath. She denies abdominal pain. She does complain of thirst.] Objective Temp Pulse Resp BP Pulse Ox 98.2 F 86 18 137/86 95 01/16/18 12:01 01/16/18 12:14 01/16/18 12:14 01/16/18 12:01 01/16/18 12:14 - Additional Data Intake & Output - Last 24 hours: Intake & Output 01/14/18 01/15/18 01/16/18 01/17/18 05:59 05:59 05:59 05:59 Intake Total 3650 / 3650 115 / 115 Output Total 720 / 720 Balance 2930 / 2930 115 / 115 Weight 207 lb 14.4 oz - General physical appearance well developed, well nourished, no distress - Eyes PERRL, normal ocular movement - ENT normal pinna, normal nares, normal mucosa, no hearing loss, no congestion - Neck no masses, no bruits, trachea midline, no lymphadectomy, no venous distension - Respiratory normal expansion, normal respiratory effort, clear to percussion, clear to auscultation, other (No wheezes noted) - Cardiovascular Cardiovascular exam: Present: normal rate and rhythm, RRR, +S1, +S2. Absent: JVD - Abdomen tender (Mild incisional tenderness; hypoactive bowel sounds; LA drain with bloody drainage), bowel sounds (present), surgical scars (none), masses (none) - Genitourinary normal external genitalia, normal perineum - Integumentary no rash, no growths, no abnormal pigmentation - Psychiatric other (Oriented to person disoriented to place & time) - Labs 01/16/18 13:49 01/16/18 04:00 Diabetes panel 01/16/18 Range/Units 04:00 Sodium 140 (133-145) mmol/L Potassium 4.3 (3.3-5.1) mmol/L Chloride 100 (96-108) mmol/L Carbon Dioxide 25 (22-30) mmol/L BUN 24 H (8-23) mg/dl Creatinine 1.2 H (0.6-1.1) mg/dl Glucose 180 H (70-105) mg/dL Calcium 8.6 (8.6-10.4) mg/dl AST 22 (0-37) U/l ALT 30 (0-40) U/l Alkaline Phosphatase 71 (39-117) U/L Total Protein 6.8 (5.9-8.4) gm/dL Albumin 3.8 (3.2-5.2) gm/dL Triglycerides 146 (<150) mg/dl Calcium panel 01/16/18 Range/Units 04:00 Calcium 8.6 (8.6-10.4) mg/dl Phosphorus 4.1 (2.7-4.5) mg/dL Albumin 3.8 (3.2-5.2) gm/dL Pituitary panel 01/16/18 Range/Units 04:00 Sodium 140 (133-145) mmol/L Potassium 4.3 (3.3-5.1) mmol/L Chloride 100 (96-108) mmol/L Carbon Dioxide 25 (22-30) mmol/L BUN 24 H (8-23) mg/dl Creatinine 1.2 H (0.6-1.1) mg/dl Glucose 180 H (70-105) mg/dL Calcium 8.6 (8.6-10.4) mg/dl Adrenal panel 01/16/18 Range/Units 04:00 Sodium 140 (133-145) mmol/L Potassium 4.3 (3.3-5.1) mmol/L Chloride 100 (96-108) mmol/L Carbon Dioxide 25 (22-30) mmol/L BUN 24 H (8-23) mg/dl Creatinine 1.2 H (0.6-1.1) mg/dl Glucose 180 H (70-105) mg/dL Calcium 8.6 (8.6-10.4) mg/dl Total Bilirubin 0.3 (0.0-1.0) mg/dL AST 22 (0-37) U/l ALT 30 (0-40) U/l Alkaline Phosphatase 71 (39-117) U/L Total Protein 6.8 (5.9-8.4) gm/dL Albumin 3.8 (3.2-5.2) gm/dL Assessment and Plan (1) Incarcerated ventral hernia Status: Resolved Assessment and plan: Patient is stable. She does not have any respiratory difficulty. She denies chest pain. Her abdominal wound is unremarkable. Current Visit: Yes (2) Hypertensive renal disease Status: Chronic Current Visit: No (3) CKD (chronic kidney disease), stage III Status: Chronic Assessment and plan: Mild elevation of BUN and creatinine which will be followed closely Current Visit: No - Time Spent With Patient Total time spent is greater than 50% in coordination of care (as documented) at patient's floor/unit and/or counseling patient:
[2018-01-16] MEDS: QUEtiapine 25 MG TABLET PO SCH (20:15)
[2018-01-17] MEDS: fentaNYL 100 MCG/2 ML VIAL IV PRN (01:06)
[2018-01-17 05:07] LABS: Basophils # (Auto) 0 K/mcL (0.0-0.3); Basophils % (Auto) 0 % (0.0-2.0); Eosinophils # (Auto) 0.2 K/mcL (0.0-0.7); Eosinophils % (Auto) 2.1 % (0.0-7.0); Granulocytes % (Auto) 80.9 % (38.0-78.0); Lymphocytes # (Auto) 1.1 K/mcL (1.5-4.8); Mean Cell Volume 96.7 fL (80.0-100.0); Mean Corpuscular HGB Conc 33.3 g/dL (31.0-36.0); Mean Corpuscular Hemoglobin 32.2 pg (26.0-34.0); Monocytes # (Auto) 0.7 K/mcL (0.1-0.9); Platelet Count 164 K/mcL (140-440); RBC 4.23 M/mcL (4.00-5.20)
[2018-01-17 05:24] LABS: ALT/SGPT 19 U/l (0-40); Albumin 3.3 gm/dL (3.2-5.2); Albumin/Globulin Ratio 1.4 (1.0-2.3); Alkaline Phosphatase 60 U/L (39-117); Bilirubin,Direct < 0.2 mg/dL (0.0-0.3); Blood Urea Nitrogen 17 mg/dl (8-23); Gamma Glutamyl Transpeptidase 59 U/L (5-36); Uric Acid 5.8 mg/dL (2.5-8.0)
[2018-01-17] MEDS: HEPARIN 5,000 UNIT/ML VIAL SQ SCH ×2 (10:31→21:19)
[2018-01-17] MEDS: ERTAPENEM 1 GM in 0.9 % SODIUM CHLORIDE 50 ML IV SCH (10:32)
--- NOTE | 2018-01-17 13:00 | Surgical Pathology Report ---
HISTOLOGY SPECIMEN MICROSCOPIC DIAGNOSIS SOFT TISSUE, VENTRAL ABDOMEN, HERNIA REPAIR: -- FIBROMEMBRANOUS AND MATURE ADIPOSE TISSUE. (RLF:osvaldof) PROCEDURAL IMPRESSION Incarcerated ventral hernia. GROSS DESCRIPTION Received in formalin labeled with the patient information, are two purple-recinos membranous tissue fragments which are 6.0 x 2.5 x 0.3 and 11.0 x 3.5 x 1.5 cm. Accredited Legal Secretary sections submitted - one cassette. (STS:sln) Electronically Signed by: Edwige Trujillo M.D.
--- NOTE | 2018-01-17 14:38 | XRay Report ---
CLINICAL INFORMATION: Postop COMPARISON: 01/15/2018 FINDINGS: Marked cardiomegaly is slightly increased. Mediastinum is unremarkable. Pulmonary vessels are within normal limits. Minimal patchy airspace disease in the mid and lower lungs which could indicate atelectasis and/or aspiration. No definite effusion IMPRESSION: Minimal patchy airspace disease in both mid and lower lungs, likely atelectasis, but could represent a aspiration Marked cardiomegaly stable. No vascular congestion to suggest CHF Interpreted and Authenticated by: Bryan Pearson 01/17/18
[2018-01-17] MEDS: DEXTROSE 5%-LR 1,000 ML IV SCH (15:53)
--- NOTE | 2018-01-17 16:32 | Internal Med Progress Note ---
Medical - PN: Subj Patient information: Note initiated : 01/17/18 at 4:27 pm Service Date, if different from initiated Date: [] Patient: Carey Gomez 87 y/o F admitted on 01/16/18 for Abd Pain, Knee Pain/Incarcerated Ventral Hernia. Chief Complaint: [] Interval history: 01/15 The patient is an 87-year-old female with a history of hypertension, chronic kidney disease stage III, congestive heart failure which is diastolic in nature , Alzheimer's disease, treated hypothyroidism presents to the emergency department from [facility] with abdominal pain. Family the patient had a fall today, but because of ongoing abdominal pain was brought to the emergency department for further evaluation. The patient has a known large ventral hernia, present for at least the last 2 years. When she first arrived, she was experiencing significant abdominal pain per Dr. Alvarez's report, and she did receive 0.5 mg of hydromorphone due to the ongoing pain. CT scan of the abdomen reveals incarcerated hernia, some mesenteric edema concerning for mesenteric compromise. When I and Dr. Martinez see the patient, she is complaining of abdominal discomfort, the exam is a bit equivocal, though she still is likely sparing seen some affect from hydromorphone. In regards to her congestive heart failure, echocardiogram in July 2016 showed left ventricular hypertrophy with normal systolic function. Patient currently denies any chest pain, chest tightness or squeezing. She denies any shortness of breath. She can sleep on her back without becoming short of breath , does not arise at night with dyspnea. She is noted no lower extremity edema. She has no history of coronary artery disease, no history of myocardial infarction. This is confirmed by her daughter. No history of lung disease, specifically no history of asthma, emphysema. In regards to her abdomen, she is complaining of discomfort, though tends to minimize her symptoms. Uncomfortable for her to try to bend at the waist and sit up in the gurney. She's had no nausea or vomiting. Otherwise, she denies to me any fevers or chills, headache, vision changes, cough or sputum production, focal neurologic symptoms, history of stroke or TIA (confirmed by her daughter). She has allergies listed to multiple antibiotics, however the patient is unaware what the reactions are. The only reaction the chart of significance which is listed is hives with ofloxacin. The remainder are listed as unknown. 01/16 Tolerated surgery well, hernia or is repaired with ventral mesh placed. Postoperatively she had hypoxic respiratory failure, required BiPAP therapy overnight. That was on until about 445, when she was awake enough to remove the mask on her own, is maintaining saturations since then. When I see her this morning, she asks "I had surgery?" When I discussed the events of yesterday. She complains of some abdominal discomfort, but not severe pain. Denies any dyspnea. Has to be reminded several times of why she is in the hospital and what has occurred in the last day. Denies any chest pain , denies any shortness of breath, some abdominal pain but tends to minimize it. 01/17-patient seen in room along with daughter. As per daughter patient is at baseline. Poor communication. Appears more fatigued and lethargic and sedated. She is on antipsychotic 4 intermittent delirium and dementia induced agitation. No overnight events. - Constitutional Vitals: Vital Signs Temp Pulse Resp BP Pulse Ox 97.8 F 53 L 16 160/97 98 01/17/18 12:00 01/17/18 12:00 01/17/18 12:00 01/17/18 12:00 01/17/18 12:00 Period Temp Pulse Resp BP Sys/Morillo Pulse Ox Last 24 Hr 97.8 F-98.8 F 50-86 15- 136-160/78-97 94-98 Intake and Output 01/17/18 01/17/18 01/17/18 05:59 13:59 21:59 Intake Total 100 / 100 1093 / 1093 Output Total 790 / 790 1450 / 1450 Balance -690 / -690 -15 / -15 -357 / -357 Weight 205 lb 14.72 oz Patient Weight 01/18/18 05:59 Weight 205 lb 14.72 oz Intake & Output: Intake & Output 01/17/18 01/17/18 01/17/18 05:59 13:59 21:59 Intake Total 100 / 100 1093 / 1093 Output Total 790 / 790 1450 / 1450 Balance -690 / -690 -15 / -15 -357 / -357 Weight 205 lb 14.72 oz Intake: IV 1043 / 1043 Dextrose 5%-Lactated Ringers 1, 993 / 993 000 ml @ 50 mls/hr IV .Q20H [facility] Rx#:[id number] INVanz 1 GM In Sodium Chloride 50 / 50 0.9% 50 ml @ 100 mls/hr IV DAILY [facility] Rx#:[id number] Oral 100 / 100 50 / 50 Output: Drainage 50 / 50 Right Abdomen 50 / 50 Urine Catheter Amount 775 / 775 1400 / 1400 General appearance: no acute distress Exam: lethargic No anxiety or agitation No telemetry events Nonlabored breathing Medical - PN: Obj Da - Labs CBC & Chem 7: 01/17/18 04:00 01/17/18 04:00 Labs: Abnormal Lab Results 01/17/18 01/17/18 01/16/18 04:00 04:00 13:49 WBC 13.3 H Hgb 15.3 H Hct POC Hct Gran % 80.9 H 88.5 H Lymph % (Auto) 10.0 L 4.0 L Gran # 8.6 H 11.8 H Lymph # (Auto) 1.1 L 0.5 L POC BUN BUN Creatinine POC Creatinine Glucose 115 H POC Glucose Calcium 8.2 L POC WB Ioniz Calcium GGT 59 H Lactate Dehydrogenase Total Protein 5.6 L Triglycerides 205 H Ur Leukocyte Esterase Urine RBC Urine WBC 01/16/18 01/16/18 01/15/18 04:00 04:00 17:15 WBC 13.4 H Hgb 16.5 H Hct 49.4 H POC Hct Gran % 91.9 H Lymph % (Auto) 3.4 L Gran # 12.3 H Lymph # (Auto) 0.5 L POC BUN BUN 24 H Creatinine 1.2 H POC Creatinine Glucose 180 H POC Glucose Calcium POC WB Ioniz Calcium GGT 74 H Lactate Dehydrogenase 269 H Total Protein Triglycerides Ur Leukocyte Esterase 500 A Urine RBC 2 H Urine WBC 126 H 01/15/18 01/15/18 14:57 14:57 WBC Hgb 16.2 H Hct 48.7 H POC Hct 50.0 H Gran % Lymph % (Auto) Gran # Lymph # (Auto) 1.2 L POC BUN 35 H BUN 31 H Creatinine 1.3 H POC Creatinine 1.4 H Glucose 148 H POC Glucose 147 H Calcium POC WB Ioniz Calcium 1.07 L GGT Lactate Dehydrogenase Total Protein Triglycerides Ur Leukocyte Esterase Urine RBC Urine WBC Meds: Medications Fentanyl (Sublimaze) 12.5 - 25 mcg IV Q2HP PRN PRN Reason: PAIN LEVEL > 6 Last Admin: 01/17/18 01:06 Dose: 25 mcg Heparin Sodium (Porcine) (Heparin) 5,000 unit SQ Q12 [facility] Last Admin: 01/17/18 10:31 Dose: 5,000 unit Hydralazine HCl (Apresoline) 10 mg IV Q4HP PRN PRN Reason: Hypertension Dextrose/Lactated Ringer's (Dextrose 5%-Lactated Ringers) 1,000 mls @ 50 mls/ hr IV .Q20H [facility] Last Admin: 01/17/18 15:53 Dose: 50 mls/hr Acetaminophen (Ofirmev) 650 mg in 65 mls @ 130 mls/hr IV Q6HP PRN PRN Reason: PAIN/FEVER > 101 Last Infusion: 01/16/18 06:05 Dose: Infused Ertapenem 1 gm/ Sodium (Chloride) 50 mls @ 100 mls/hr IV DAILY [facility] Last Infusion: 01/17/18 15:55 Dose: Infused Ondansetron HCl (Zofran) 4 mg IV Q8HP PRN PRN Reason: Nausea And Vomiting Quetiapine Fumarate (Seroquel) 75 mg PO HS [facility] Last Admin: 01/16/18 20:15 Dose: 75 mg Medical - PN: A/P - Time Spent With Patient Total time spent is greater than 50% in coordination of care (as documented) at patient's floor/unit and/or counseling patient: 15 - 24 minutes - Narrative A/P Narrative: * Ventral hernia, incarcerated, query strangulation. Status post repair by Dr. Martinez. Postop day #2. Postoperative management per surgery. on ertapenem for history of ESBL infection. On sips and chips as per surgery. * Acute hypoxic respiratory failure. Improved. * Chronic diastolic congestive heart failure. Currently appears compensated. * Hypertension. restart oral meds.. * acute cystitis. culture pending. On ertapenem to cover abdominal surgery, should also cover any urinary organisms. * Hypothyroidism, on replacement. * Chronic kidney disease stage III.at baseline * Dementia induced agitation. clinically stable on risperidone * Moderate pericardial effusion. Patient is hemodynamically stable. Plan * pre-existing medical condition on home meds * Post operative management per surgery Medical - PN: Qual - VTE Deep Vein Thrombosis/Pulmonary Embolism Present on Admission: No
[2018-01-17] MEDS: QUEtiapine 25 MG TABLET PO SCH (19:45)
--- NOTE | 2018-01-17 20:04 | General Surgery Progress Note ---
Subjective Patient reports: feels better, still having pain, no flatus, no bowel movement Narrative: Note initiated : 01/17/18 at 8:03 pm Service Date, if different from initiated Date: [] Patient: Carey Gomez 87 y/o F admitted on 01/16/18 for Abd Pain, Knee Pain/Incarcerated Ventral Hernia. Chief Complaint: [Patient continues to do well. She is mildly lethargic but responds to questioning. Her mental status is altered but this is probably baseline. Her pain is controlled. She does not have any respiratory difficulty and maintains good oxygen saturations on 3 L O2 via nasal cannula. Her abdominal incision is unremarkable and she has minimal bloody output in her LA drain.] Objective Temp Pulse Resp BP Pulse Ox 97.9 F 57 L 22 155/103 99 01/17/18 16:00 01/17/18 16:00 01/17/18 16:00 01/17/18 16:00 01/17/18 19:04 - Additional Data Intake & Output - Last 24 hours: Intake & Output 01/15/18 01/16/18 01/17/18 01/18/18 05:59 05:59 05:59 05:59 Intake Total 3650 / 3650 1212 / 1212 1093 / 1093 Output Total 720 / 720 1405 / 1405 1465 / 1465 Balance 2930 / 2930 -193 / -193 -372 / -372 Weight 207 lb 14.4 oz 205 lb 14.72 oz 205 lb 14.72 oz - General physical appearance well developed, well nourished, moderate distress - Eyes PERRL, normal ocular movement - ENT normal pinna, normal nares, normal mucosa, no hearing loss, no congestion - Neck no masses, no bruits, trachea midline, no lymphadectomy, no venous distension - Respiratory normal expansion, normal respiratory effort, clear to auscultation - Cardiovascular Cardiovascular exam: Present: normal rate and rhythm, RRR, +S1, +S2. Absent: JVD - Abdomen tender (Mild incisional tenderness with good active bowel sounds), bowel sounds (present), surgical scars (none), masses (none) - Integumentary no rash, no growths, no abnormal pigmentation - Psychiatric oriented to person - Labs 01/17/18 04:00 01/17/18 04:00 Diabetes panel 01/17/18 Range/Units 04:00 Sodium 144 (133-145) mmol/L Potassium 3.7 (3.3-5.1) mmol/L Chloride 106 (96-108) mmol/L Carbon Dioxide 30 (22-30) mmol/L BUN 17 (8-23) mg/dl Creatinine 0.9 (0.6-1.1) mg/dl Glucose 115 H (70-105) mg/dL Calcium 8.2 L (8.6-10.4) mg/dl AST 13 (0-37) U/l ALT 19 (0-40) U/l Alkaline Phosphatase 60 (39-117) U/L Total Protein 5.6 L (5.9-8.4) gm/dL Albumin 3.3 (3.2-5.2) gm/dL Triglycerides 205 H (<150) mg/dl Calcium panel 01/17/18 Range/Units 04:00 Calcium 8.2 L (8.6-10.4) mg/dl Phosphorus 2.7 (2.7-4.5) mg/dL Albumin 3.3 (3.2-5.2) gm/dL Pituitary panel 01/17/18 Range/Units 04:00 Sodium 144 (133-145) mmol/L Potassium 3.7 (3.3-5.1) mmol/L Chloride 106 (96-108) mmol/L Carbon Dioxide 30 (22-30) mmol/L BUN 17 (8-23) mg/dl Creatinine 0.9 (0.6-1.1) mg/dl Glucose 115 H (70-105) mg/dL Calcium 8.2 L (8.6-10.4) mg/dl Adrenal panel 01/17/18 Range/Units 04:00 Sodium 144 (133-145) mmol/L Potassium 3.7 (3.3-5.1) mmol/L Chloride 106 (96-108) mmol/L Carbon Dioxide 30 (22-30) mmol/L BUN 17 (8-23) mg/dl Creatinine 0.9 (0.6-1.1) mg/dl Glucose 115 H (70-105) mg/dL Calcium 8.2 L (8.6-10.4) mg/dl Total Bilirubin 0.2 (0.0-1.0) mg/dL AST 13 (0-37) U/l ALT 19 (0-40) U/l Alkaline Phosphatase 60 (39-117) U/L Total Protein 5.6 L (5.9-8.4) gm/dL Albumin 3.3 (3.2-5.2) gm/dL Assessment and Plan (1) Incarcerated ventral hernia Status: Resolved Assessment and plan: Patient is stable. She does not have any respiratory difficulty. She denies chest pain. Her abdominal wound is unremarkable. Current Visit: Yes (2) Hypertensive renal disease Status: Chronic Current Visit: No (3) CKD (chronic kidney disease), stage III Status: Chronic Assessment and plan: Mild elevation of BUN and creatinine which will be followed closely Current Visit: No - Time Spent With Patient Total time spent is greater than 50% in coordination of care (as documented) at patient's floor/unit and/or counseling patient:
[2018-01-18] MEDS: fentaNYL 100 MCG/2 ML VIAL IV PRN ×2 (03:16→08:49)
[2018-01-18 05:21] LABS: Basophils # (Auto) 0 K/mcL (0.0-0.3); Basophils % (Auto) 0.3 % (0.0-2.0); Eosinophils # (Auto) 0.2 K/mcL (0.0-0.7); Eosinophils % (Auto) 3.3 % (0.0-7.0); Granulocytes % (Auto) 71.3 % (38.0-78.0); Lymphocytes # (Auto) 1.2 K/mcL (1.5-4.8); Lymphocytes % (Auto) 16.5 % (15.5-49.0); Mean Cell Volume 97.5 fL (80.0-100.0); Mean Corpuscular HGB Conc 32.6 g/dL (31.0-36.0); Mean Corpuscular Hemoglobin 31.8 pg (26.0-34.0); Monocytes # (Auto) 0.6 K/mcL (0.1-0.9); Monocytes % (Auto) 8.6 % (1.0-12.0); Platelet Count 157 K/mcL (140-440); RBC 4.54 M/mcL (4.00-5.20); Red Cell Distribution Width 14.2 % (11.5-14.5)
[2018-01-18 05:40] LABS: ALT/SGPT 32 U/l (0-40); Albumin 3.1 gm/dL (3.2-5.2); Albumin/Globulin Ratio 1.1 (1.0-2.3); Alkaline Phosphatase 73 U/L (39-117); Bilirubin,Direct < 0.2 mg/dL (0.0-0.3); Blood Urea Nitrogen 13 mg/dl (8-23); Gamma Glutamyl Transpeptidase 99 U/L (5-36); Uric Acid 5.6 mg/dL (2.5-8.0)
[2018-01-18] MEDS: HEPARIN 5,000 UNIT/ML VIAL SQ SCH ×2 (09:18→21:03)
[2018-01-18] MEDS: ERTAPENEM 1 GM in 0.9 % SODIUM CHLORIDE 50 ML IV SCH (09:19)
--- NOTE | 2018-01-18 09:37 | Internal Med Progress Note ---
Medical - PN: Subj Patient information: Note initiated : 01/18/18 at 9:35 am Service Date, if different from initiated Date: [] Patient: Carey Gomez 87 y/o F admitted on 01/16/18 for Abd Pain, Knee Pain/Incarcerated Ventral Hernia. Chief Complaint: [] Interval history: 01/15 The patient is an 87-year-old female with a history of hypertension, chronic kidney disease stage III, congestive heart failure which is diastolic in nature , Alzheimer's disease, treated hypothyroidism presents to the emergency department from [facility] with abdominal pain. Family the patient had a fall today, but because of ongoing abdominal pain was brought to the emergency department for further evaluation. The patient has a known large ventral hernia, present for at least the last 2 years. When she first arrived, she was experiencing significant abdominal pain per Dr. Alvarez's report, and she did receive 0.5 mg of hydromorphone due to the ongoing pain. CT scan of the abdomen reveals incarcerated hernia, some mesenteric edema concerning for mesenteric compromise. When I and Dr. Martinez see the patient, she is complaining of abdominal discomfort, the exam is a bit equivocal, though she still is likely sparing seen some affect from hydromorphone. In regards to her congestive heart failure, echocardiogram in July 2016 showed left ventricular hypertrophy with normal systolic function. Patient currently denies any chest pain, chest tightness or squeezing. She denies any shortness of breath. She can sleep on her back without becoming short of breath , does not arise at night with dyspnea. She is noted no lower extremity edema. She has no history of coronary artery disease, no history of myocardial infarction. This is confirmed by her daughter. No history of lung disease, specifically no history of asthma, emphysema. In regards to her abdomen, she is complaining of discomfort, though tends to minimize her symptoms. Uncomfortable for her to try to bend at the waist and sit up in the gurney. She's had no nausea or vomiting. Otherwise, she denies to me any fevers or chills, headache, vision changes, cough or sputum production, focal neurologic symptoms, history of stroke or TIA (confirmed by her daughter). She has allergies listed to multiple antibiotics, however the patient is unaware what the reactions are. The only reaction the chart of significance which is listed is hives with ofloxacin. The remainder are listed as unknown. 01/16 Tolerated surgery well, hernia or is repaired with ventral mesh placed. Postoperatively she had hypoxic respiratory failure, required BiPAP therapy overnight. That was on until about 445, when she was awake enough to remove the mask on her own, is maintaining saturations since then. When I see her this morning, she asks "I had surgery?" When I discussed the events of yesterday. She complains of some abdominal discomfort, but not severe pain. Denies any dyspnea. Has to be reminded several times of why she is in the hospital and what has occurred in the last day. Denies any chest pain , denies any shortness of breath, some abdominal pain but tends to minimize it. 01/17-patient seen in room along with daughter. As per daughter patient is at baseline. Poor communication. Appears more fatigued and lethargic and sedated. She is on antipsychotic 4 intermittent delirium and dementia induced agitation. No overnight events. 01/18- patient doing well postoperative. Delirium/agitation resolved. Now at baseline. Lucid and alert and oriented. Starting on clears as per surgery. No concerns expressed by nursing staff.no further recommendations from hospitalist service at this time. Continued physical therapy - Constitutional Vitals: Vital Signs Temp Pulse Resp BP Pulse Ox 99.2 F H 51 L 22 151/80 96 01/18/18 04:11 01/18/18 04:31 01/18/18 04:31 01/18/18 04:11 01/18/18 04:31 Period Temp Pulse Resp BP Sys/Morillo Pulse Ox Last 24 Hr 97.8 F-99.2 F 51-79 16-25 127-171/69-112 94-99 Intake and Output 01/17/18 01/18/18 01/18/18 21:59 05:59 13:59 Intake Total 1093 / 1093 100 / 100 Output Total 1450 / 1450 1455 / 1455 Balance -357 / -357 -1355 / -1355 Weight 204 lb 6.4 oz Intake & Output: Intake & Output 01/17/18 01/18/18 01/18/18 21:59 05:59 13:59 Intake Total 1093 / 1093 100 / 100 Output Total 1450 / 1450 1455 / 1455 Balance -357 / -357 -1355 / -1355 Weight 204 lb 6.4 oz Intake: IV 1043 / 1043 Dextrose 5%-Lactated Ringers 1, 993 / 993 000 ml @ 50 mls/hr IV .Q20H [facility] Rx#:[id number] INVanz 1 GM In Sodium Chloride 50 / 50 0.9% 50 ml @ 100 mls/hr IV DAILY [facility] Rx#:[id number] Oral 50 / 50 100 / 100 Output: Drainage 50 / 50 30 / 30 Right Abdomen 50 / 50 30 / 30 Urine Catheter Amount 1400 / 1400 1425 / 1425 General appearance: cooperative, no acute distress Medical - PN: Obj Da - Labs CBC & Chem 7: 01/18/18 04:05 01/18/18 04:05 Labs: Abnormal Lab Results 01/18/18 01/18/18 01/17/18 04:05 04:05 04:00 WBC Hgb Hct POC Hct Gran % 80.9 H Lymph % (Auto) 10.0 L Gran # 8.6 H Lymph # (Auto) 1.2 L 1.1 L POC BUN BUN Creatinine POC Creatinine Glucose POC Glucose Calcium POC WB Ioniz Calcium Phosphorus 2.0 L GGT 99 H Lactate Dehydrogenase Total Protein Albumin 3.1 L Triglycerides 259 H Ur Leukocyte Esterase Urine RBC Urine WBC 01/17/18 01/16/18 01/16/18 04:00 13:49 04:00 WBC 13.3 H Hgb 15.3 H Hct POC Hct Gran % 88.5 H Lymph % (Auto) 4.0 L Gran # 11.8 H Lymph # (Auto) 0.5 L POC BUN BUN 24 H Creatinine 1.2 H POC Creatinine Glucose 115 H 180 H POC Glucose Calcium 8.2 L POC WB Ioniz Calcium Phosphorus GGT 59 H 74 H Lactate Dehydrogenase 269 H Total Protein 5.6 L Albumin Triglycerides 205 H Ur Leukocyte Esterase Urine RBC Urine WBC 01/16/18 01/15/18 01/15/18 04:00 17:15 14:57 WBC 13.4 H Hgb 16.5 H Hct 49.4 H POC Hct 50.0 H Gran % 91.9 H Lymph % (Auto) 3.4 L Gran # 12.3 H Lymph # (Auto) 0.5 L POC BUN 35 H BUN 31 H Creatinine 1.3 H POC Creatinine 1.4 H Glucose 148 H POC Glucose 147 H Calcium POC WB Ioniz Calcium 1.07 L Phosphorus GGT Lactate Dehydrogenase Total Protein Albumin Triglycerides Ur Leukocyte Esterase 500 A Urine RBC 2 H Urine WBC 126 H 01/15/18 14:57 WBC Hgb 16.2 H Hct 48.7 H POC Hct Gran % Lymph % (Auto) Gran # Lymph # (Auto) 1.2 L POC BUN BUN Creatinine POC Creatinine Glucose POC Glucose Calcium POC WB Ioniz Calcium Phosphorus GGT Lactate Dehydrogenase Total Protein Albumin Triglycerides Ur Leukocyte Esterase Urine RBC Urine WBC Meds: Medications Fentanyl (Sublimaze) 12.5 - 25 mcg IV Q2HP PRN PRN Reason: PAIN LEVEL > 6 Last Admin: 01/18/18 08:49 Dose: 12.5 mcg Heparin Sodium (Porcine) (Heparin) 5,000 unit SQ Q12 [facility] Last Admin: 01/17/18 21:19 Dose: 5,000 unit Hydralazine HCl (Apresoline) 10 mg IV Q4HP PRN PRN Reason: Hypertension Dextrose/Lactated Ringer's (Dextrose 5%-Lactated Ringers) 1,000 mls @ 50 mls/ hr IV .Q20H [facility] Last Admin: 01/17/18 15:53 Dose: 50 mls/hr Acetaminophen (Ofirmev) 650 mg in 65 mls @ 130 mls/hr IV Q6HP PRN PRN Reason: PAIN/FEVER > 101 Last Infusion: 01/16/18 06:05 Dose: Infused Ertapenem 1 gm/ Sodium (Chloride) 50 mls @ 100 mls/hr IV DAILY [facility] Last Infusion: 01/17/18 15:55 Dose: Infused Ondansetron HCl (Zofran) 4 mg IV Q8HP PRN PRN Reason: Nausea And Vomiting Quetiapine Fumarate (Seroquel) 75 mg PO HS [facility] Last Admin: 01/17/18 19:45 Dose: 75 mg Medical - PN: A/P - Time Spent With Patient Total time spent is greater than 50% in coordination of care (as documented) at patient's floor/unit and/or counseling patient: 15 - 24 minutes - Narrative A/P Narrative: * Ventral hernia, incarcerated, query strangulation. Status post repair by Dr. Martinez. Postop day #2. Postoperative management per surgery. on ertapenem for history of ESBL infection. diet advancement per surgery * Acute hypoxic respiratory failure. on care is oxygen * Dementia induced agitation. clinically stable on risperidone * Chronic diastolic congestive heart failure. Currently appears compensated. * Hypertension. restart oral meds.. * acute cystitis. culture pending. On ertapenem to cover abdominal surgery, should also cover any urinary organisms. * Hypothyroidism, on replacement. * Chronic kidney disease stage III. at baseline * Moderate pericardial effusion. stable with no hemodynamic instability Plan * pre-existing medical condition on home meds * no further recommendations from hospitalist service at this time * Physical therapy * Further management per surgery Medical - PN: Qual - VTE Deep Vein Thrombosis/Pulmonary Embolism Present on Admission: No
[2018-01-18] MEDS: DEXTROSE 5%-LR 1,000 ML IV SCH ×2 (13:59→17:20)
--- NOTE | 2018-01-18 16:58 | General Surgery Progress Note ---
Subjective Patient reports: feels better, pain is less, tolerating liquids well, flatus, afebrile Narrative: Note initiated : 01/18/18 at 4:56 pm Service Date, if different from initiated Date: [] Patient: Carey Gomez 87 y/o F admitted on 01/16/18 for Abd Pain, Knee Pain/Incarcerated Ventral Hernia. Chief Complaint: [Patient is feeling better. She is more alert and aware and answers most questions appropriately. She is afebrile. She denies nausea or vomiting. She has had flatus. Her abdominal pain is fairly well controlled. She is having some mild hypertension and will be restarted on her oral antihypertensive medication. Patient is stable enough to be transferred to the medical floor.] Objective Temp Pulse Resp BP Pulse Ox 99.3 F H 67 18 170/90 96 01/18/18 16:53 01/18/18 16:53 01/18/18 16:53 01/18/18 16:53 01/18/18 16:53 - Additional Data Intake & Output - Last 24 hours: Intake & Output 01/16/18 01/17/18 01/18/18 01/19/18 05:59 05:59 05:59 05:59 Intake Total 3650 / 3650 1212 / 1212 1193 / 1193 1000 / 1000 Output Total 720 / 720 1405 / 1405 2920 / 2920 60 / 60 Balance 2930 / 2930 -193 / -193 -1727 / -1727 940 / 940 Weight 207 lb 14.4 oz 205 lb 14.72 oz 204 lb 6.4 oz - General physical appearance well developed, well nourished, no distress - Eyes PERRL, normal ocular movement - ENT normal pinna, normal nares, normal mucosa, no hearing loss, no congestion - Neck no masses, no bruits, trachea midline, no lymphadectomy, no venous distension - Respiratory normal expansion, normal respiratory effort, clear to auscultation, other (Good active breath sounds bilaterally) - Cardiovascular Cardiovascular exam: Present: normal rate and rhythm, RRR, +S1, +S2. Absent: JVD - Abdomen tender (Mild tenderness along her incision but otherwise unremarkable; good active bowel sounds), bowel sounds (present), surgical scars (none), masses ( none) - Integumentary no rash, no growths, no abnormal pigmentation - Psychiatric oriented to person, oriented to place, speech is normal - Labs 01/18/18 04:05 01/18/18 04:05 Diabetes panel 01/18/18 Range/Units 04:05 Sodium 142 (133-145) mmol/L Potassium 3.4 (3.3-5.1) mmol/L Chloride 105 (96-108) mmol/L Carbon Dioxide 28 (22-30) mmol/L BUN 13 (8-23) mg/dl Creatinine 0.9 (0.6-1.1) mg/dl Glucose 99 (70-105) mg/dL Calcium 8.6 (8.6-10.4) mg/dl AST 25 (0-37) U/l ALT 32 (0-40) U/l Alkaline Phosphatase 73 (39-117) U/L Total Protein 6.0 (5.9-8.4) gm/dL Albumin 3.1 L (3.2-5.2) gm/dL Triglycerides 259 H (<150) mg/dl Calcium panel 01/18/18 Range/Units 04:05 Calcium 8.6 (8.6-10.4) mg/dl Phosphorus 2.0 L (2.7-4.5) mg/dL Albumin 3.1 L (3.2-5.2) gm/dL Pituitary panel 01/18/18 Range/Units 04:05 Sodium 142 (133-145) mmol/L Potassium 3.4 (3.3-5.1) mmol/L Chloride 105 (96-108) mmol/L Carbon Dioxide 28 (22-30) mmol/L BUN 13 (8-23) mg/dl Creatinine 0.9 (0.6-1.1) mg/dl Glucose 99 (70-105) mg/dL Calcium 8.6 (8.6-10.4) mg/dl Adrenal panel 01/18/18 Range/Units 04:05 Sodium 142 (133-145) mmol/L Potassium 3.4 (3.3-5.1) mmol/L Chloride 105 (96-108) mmol/L Carbon Dioxide 28 (22-30) mmol/L BUN 13 (8-23) mg/dl Creatinine 0.9 (0.6-1.1) mg/dl Glucose 99 (70-105) mg/dL Calcium 8.6 (8.6-10.4) mg/dl Total Bilirubin 0.4 (0.0-1.0) mg/dL AST 25 (0-37) U/l ALT 32 (0-40) U/l Alkaline Phosphatase 73 (39-117) U/L Total Protein 6.0 (5.9-8.4) gm/dL Albumin 3.1 L (3.2-5.2) gm/dL Assessment and Plan (1) Incarcerated ventral hernia Status: Resolved Assessment and plan: Patient is stable. Advanced to diet full liquid; transferred to medical floor Current Visit: Yes (2) Hypertensive renal disease Status: Chronic Current Visit: No (3) CKD (chronic kidney disease), stage III Status: Chronic Assessment and plan: Mild elevation of BUN and creatinine which will be followed closely Current Visit: No - Time Spent With Patient Total time spent is greater than 50% in coordination of care (as documented) at patient's floor/unit and/or counseling patient:
[2018-01-18] MEDS ORDERED: fentaNYL 100 MCG/2 ML VIAL IV PRN (17:18)
[2018-01-18] MEDS ORDERED: ACETAMINOPHEN 650 MG/65 ML BOTTLE IV PRN (17:18)
[2018-01-18] MEDS ORDERED: hydrALAZINE 20 MG/ML VIAL IV PRN (17:18)
[2018-01-18] MEDS ORDERED: ONDANSETRON 4 MG/2 ML VIAL IV PRN (17:18)
[2018-01-18] MEDS ORDERED: MAGNESIUM OXIDE 400 MG TABLET PO SCH (21:00)
[2018-01-18] MEDS ORDERED: QUEtiapine 25 MG TABLET PO SCH (21:00)
[2018-01-18] MEDS: MAGNESIUM OXIDE 400 MG TABLET PO SCH (21:03)
[2018-01-18] MEDS: QUEtiapine 25 MG TABLET PO SCH (21:03)
[2018-01-19 07:00] LABS: ALT/SGPT 63 U/l (0-40); Alkaline Phosphatase 100 U/L (39-117); Bilirubin,Direct < 0.2 mg/dL (0.0-0.3); Blood Urea Nitrogen 13 mg/dl (8-23); Gamma Glutamyl Transpeptidase 158 U/L (5-36); Uric Acid 4.8 mg/dL (2.5-8.0)
[2018-01-19] MEDS ORDERED: ERTAPENEM 1 GM in 0.9 % SODIUM CHLORIDE 50 ML IV SCH (09:00)
[2018-01-19] MEDS ORDERED: LORazepam 1 MG TABLET PO SCH (09:00)
[2018-01-19] MEDS ORDERED: TORSEMIDE 10 MG TABLET PO SCH (09:00)
[2018-01-19] MEDS ORDERED: LOSARTAN 50 MG TABLET PO SCH (09:00)
[2018-01-19] MEDS ORDERED: amLODIPine 10 MG TABLET PO SCH (09:00)
[2018-01-19] MEDS: LOSARTAN 50 MG TABLET PO SCH (09:15)
[2018-01-19] MEDS: TORSEMIDE 10 MG TABLET PO SCH (09:15)
[2018-01-19] MEDS: amLODIPine 10 MG TABLET PO SCH (09:16)
[2018-01-19] MEDS: MAGNESIUM OXIDE 400 MG TABLET PO SCH ×2 (09:16→21:51)
[2018-01-19] MEDS: LORazepam 1 MG TABLET PO SCH (09:16)
[2018-01-19] MEDS: NEUTRA PHOS 1 PACKET PO SCH ×2 (09:16→21:51)
[2018-01-19] MEDS: HEPARIN 5,000 UNIT/ML VIAL SQ SCH ×2 (09:16→21:51)
[2018-01-19] MEDS: DEXTROSE 5%-LR 1,000 ML IV SCH ×2 (09:41→20:21)
--- NOTE | 2018-01-19 16:09 | Internal Med Progress Note ---
Medical - PN: Subj Patient information: Note initiated : 01/19/18 at 4:07 pm Service Date, if different from initiated Date: [] Patient: Carey Gomez 87 y/o F admitted on 01/16/18 for Abd Pain, Knee Pain/Incarcerated Ventral Hernia. Chief Complaint: [] Interval history: 01/15 The patient is an 87-year-old female with a history of hypertension, chronic kidney disease stage III, congestive heart failure which is diastolic in nature , Alzheimer's disease, treated hypothyroidism presents to the emergency department from [facility] with abdominal pain. Family the patient had a fall today, but because of ongoing abdominal pain was brought to the emergency department for further evaluation. The patient has a known large ventral hernia, present for at least the last 2 years. When she first arrived, she was experiencing significant abdominal pain per Dr. Alvarez's report, and she did receive 0.5 mg of hydromorphone due to the ongoing pain. CT scan of the abdomen reveals incarcerated hernia, some mesenteric edema concerning for mesenteric compromise. When I and Dr. Martinez see the patient, she is complaining of abdominal discomfort, the exam is a bit equivocal, though she still is likely sparing seen some affect from hydromorphone. In regards to her congestive heart failure, echocardiogram in July 2016 showed left ventricular hypertrophy with normal systolic function. Patient currently denies any chest pain, chest tightness or squeezing. She denies any shortness of breath. She can sleep on her back without becoming short of breath , does not arise at night with dyspnea. She is noted no lower extremity edema. She has no history of coronary artery disease, no history of myocardial infarction. This is confirmed by her daughter. No history of lung disease, specifically no history of asthma, emphysema. In regards to her abdomen, she is complaining of discomfort, though tends to minimize her symptoms. Uncomfortable for her to try to bend at the waist and sit up in the gurney. She's had no nausea or vomiting. Otherwise, she denies to me any fevers or chills, headache, vision changes, cough or sputum production, focal neurologic symptoms, history of stroke or TIA (confirmed by her daughter). She has allergies listed to multiple antibiotics, however the patient is unaware what the reactions are. The only reaction the chart of significance which is listed is hives with ofloxacin. The remainder are listed as unknown. 01/16 Tolerated surgery well, hernia or is repaired with ventral mesh placed. Postoperatively she had hypoxic respiratory failure, required BiPAP therapy overnight. That was on until about 445, when she was awake enough to remove the mask on her own, is maintaining saturations since then. When I see her this morning, she asks "I had surgery?" When I discussed the events of yesterday. She complains of some abdominal discomfort, but not severe pain. Denies any dyspnea. Has to be reminded several times of why she is in the hospital and what has occurred in the last day. Denies any chest pain , denies any shortness of breath, some abdominal pain but tends to minimize it. 01/17-patient seen in room along with daughter. As per daughter patient is at baseline. Poor communication. Appears more fatigued and lethargic and sedated. She is on antipsychotic 4 intermittent delirium and dementia induced agitation. No overnight events. 01/18- patient doing well postoperative. Delirium/agitation resolved. Now at baseline. Lucid and alert and oriented. Starting on clears as per surgery. No concerns expressed by nursing staff.no further recommendations from hospitalist service at this time. Continued physical therapy 01/19. Patient doing well. Managed by surgery. No overnight events. No concerns per staff. Intermittent confusion.white count 7.5 - Constitutional Vitals: Vital Signs Temp Pulse Resp BP Pulse Ox 97.5 F 67 18 138/68 94 01/19/18 15:16 01/19/18 15:16 01/19/18 12:00 01/19/18 15:16 01/19/18 15:16 Period Temp Pulse Resp BP Sys/Morillo Pulse Ox Last 24 Hr 96.8 F-99.3 F 52-81 18-27 138-189/67-109 92-97 Intake and Output 01/19/18 01/19/18 01/19/18 05:59 13:59 21:59 Intake Total 680 / 680 1410 / 1410 360 / 360 Output Total 950 / 950 1550 / 1550 Balance -270 / -270 1410 / 1410 -1190 / -1190 Weight 203 lb 11.2 oz Patient Weight 01/20/18 05:59 Weight 203 lb 11.2 oz Intake & Output: Intake & Output 0401/19/18 01/19/18 05:59 13:59 21:59 Intake Total 680 / 680 1410 / 1410 360 / 360 Output Total 950 / 950 1550 / 1550 Balance -270 / -270 1410 / 1410 -1190 / -1190 Weight 203 lb 11.2 oz Intake: IV 1050 / 1050 INVanz 1 GM In Sodium Chloride 50 / 50 0.9% 50 ml @ 100 mls/hr IV DAILY COUNTS INCLUDE 234 BEDS AT THE [facility] Rx#:[id number] Oral 180 / 180 360 / 360 360 / 360 GI Tube Flush 500 / 500 Output: Drainage 50 / 50 Right Abdomen 50 / 50 Urine Catheter Amount 900 / 900 1550 / 1550 Other: Meal Breakfast Lunch Percent of Meal Consumed 100% 100% Feeding Ability Independent General appearance: cooperative, no acute distress Exam: nonlabored breathing nondistended abdomen No anxiety Medical - PN: Obj Da - Labs CBC & Chem 7: 01/18/18 04:05 01/19/18 04:33 Labs: Abnormal Lab Results 01/19/18 01/18/18 01/18/18 04:33 04:05 04:05 Gran % Lymph % (Auto) Gran # Lymph # (Auto) 1.2 L Glucose Calcium Phosphorus 2.0 L 2.0 L GGT 158 H 99 H AST 46 H ALT 63 H Total Protein Albumin 3.0 L 3.1 L Triglycerides 208 H 259 H 01/17/18 01/17/18 04:00 04:00 Gran % 80.9 H Lymph % (Auto) 10.0 L Gran # 8.6 H Lymph # (Auto) 1.1 L Glucose 115 H Calcium 8.2 L Phosphorus GGT 59 H AST ALT Total Protein 5.6 L Albumin Triglycerides 205 H Meds: Medications Amlodipine Besylate (Norvasc) 10 mg PO QDAY COUNTS INCLUDE 234 BEDS AT THE [facility] Last Admin: 01/19/18 09:16 Dose: 10 mg Fentanyl (Sublimaze) 12.5 - 25 mcg IV Q2HP PRN PRN Reason: PAIN LEVEL > 6 Heparin Sodium (Porcine) (Heparin) 5,000 unit SQ Q12 COUNTS INCLUDE 234 BEDS AT THE [facility] Last Admin: 01/19/18 09:16 Dose: 5,000 unit Hydralazine HCl (Apresoline) 10 mg IV Q4HP PRN PRN Reason: Hypertension Dextrose/Lactated Ringer's (Dextrose 5%-Lactated Ringers) 1,000 mls @ 50 mls/ hr IV .Q20H COUNTS INCLUDE 234 BEDS AT THE [facility] Last Admin: 01/19/18 09:41 Dose: 50 mls/hr Ertapenem 1 gm/ Sodium (Chloride) 50 mls @ 100 mls/hr IV DAILY COUNTS INCLUDE 234 BEDS AT THE [facility] Last Infusion: 01/19/18 09:50 Dose: Infused Acetaminophen (Ofirmev) 650 mg in 65 mls @ 130 mls/hr IV Q6HP PRN PRN Reason: PAIN/FEVER > 101 Lorazepam (Ativan) 1 mg PO QAM COUNTS INCLUDE 234 BEDS AT THE [facility] Last Admin: 01/19/18 09:16 Dose: 1 mg Losartan Potassium (Cozaar) 100 mg PO DAILY COUNTS INCLUDE 234 BEDS AT THE [facility] Last Admin: 01/19/18 09:15 Dose: 100 mg Magnesium Oxide (Magnesium Oxide) 400 mg PO BID COUNTS INCLUDE 234 BEDS AT THE [facility] Last Admin: 01/19/18 09:16 Dose: 400 mg Ondansetron HCl (Zofran) 4 mg IV Q8HP PRN PRN Reason: Nausea And Vomiting Potassium/Phosphorus/Sodium (Neutra Phos) 1 packet PO BID COUNTS INCLUDE 234 BEDS AT THE [facility] Stop: 01/19/18 21:01 Last Admin: 01/19/18 09:16 Dose: 1 packet Quetiapine Fumarate (Seroquel) 75 mg PO HS COUNTS INCLUDE 234 BEDS AT THE [facility] Last Admin: 01/18/18 21:03 Dose: 75 mg Torsemide (Demadex) 40 mg PO DAILY COUNTS INCLUDE 234 BEDS AT THE [facility] Last Admin: 01/19/18 09:15 Dose: 40 mg Medical - PN: A/P - Time Spent With Patient Total time spent is greater than 50% in coordination of care (as documented) at patient's floor/unit and/or counseling patient: 15 - 24 minutes - Narrative A/P Narrative: * Ventral hernia, incarcerated, query strangulation. Status post repair , Postop day #3,managed by surgery. on ertapenem for history of ESBL infection. continue diet advancement per surgery * Acute hypoxic respiratory failure. clinically improved. On 2 L oxygen * Dementia induced agitation. clinically stable on risperidone * Chronic diastolic congestive heart failure. Currently appears compensated. * Hypertension. restart oral meds.. * acute cystitis. culture pending. On ertapenem to cover abdominal surgery, should also cover any urinary organisms. * Hypothyroidism, on replacement. * Chronic kidney disease stage III. at baseline * Moderate pericardial effusion. stable with no hemodynamic instability Plan * pre-existing medical condition on home meds * no changes since previous day * continue Physical therapy * discharge planning per surgery Medical - PN: Qual - VTE Deep Vein Thrombosis/Pulmonary Embolism Present on Admission: No
--- NOTE | 2018-01-19 18:00 | General Surgery Progress Note ---
Subjective Patient reports: feels better, pain is less, tolerating liquids well, flatus, bowel movement, afebrile Narrative: Note initiated : 01/19/18 at 5:57 pm Service Date, if different from initiated Date: [] Patient: Carey Gomez 87 y/o F admitted on 01/16/18 for Abd Pain, Knee Pain/Incarcerated Ventral Hernia. Chief Complaint: [Patient is doing well and has no complaints. She is tolerating diet without difficulty. She denies chest pain or shortness of breath. Her abdominal incision is unremarkable and she has good active bowel sounds. Her white blood count is normal and her hemoglobin is stable.] Objective Temp Pulse Resp BP Pulse Ox 97.5 F 67 18 138/68 94 01/19/18 15:16 01/19/18 15:16 01/19/18 12:00 01/19/18 15:16 01/19/18 15:16 - Additional Data Intake & Output - Last 24 hours: Intake & Output 01/17/18 01/18/18 01/19/18 01/20/18 05:59 05:59 05:59 05:59 Intake Total 1212 / 1212 1193 / 1193 1989 / 1989 1770 / 1770 Output Total 1405 / 1405 2920 / 2920 2060 / 2060 1550 / 1550 Balance -193 / -193 -1727 / -1727 -70 / -70 220 / 220 Weight 205 lb 14.72 oz 204 lb 6.4 oz 203 lb 11.2 oz 203 lb 11.2 oz - General physical appearance well developed, well nourished, no distress - Eyes PERRL, normal ocular movement - ENT no congestion - Neck no masses, no bruits, trachea midline, no lymphadectomy, no venous distension - Respiratory normal respiratory effort, clear to auscultation - Cardiovascular Cardiovascular exam: Present: normal rate and rhythm, RRR, +S1, +S2. Absent: JVD - Abdomen tender, bowel sounds (present), surgical scars (Incision looks unremarkable), masses (none) - Integumentary no rash, no growths, no abnormal pigmentation - Labs 01/18/18 04:05 01/19/18 04:33 Diabetes panel 01/19/18 Range/Units 04:33 Sodium 140 (133-145) mmol/L Potassium 3.4 (3.3-5.1) mmol/L Chloride 102 (96-108) mmol/L Carbon Dioxide 27 (22-30) mmol/L BUN 13 (8-23) mg/dl Creatinine 0.9 (0.6-1.1) mg/dl Glucose 101 (70-105) mg/dL Calcium 8.6 (8.6-10.4) mg/dl AST 46 H (0-37) U/l ALT 63 H (0-40) U/l Alkaline Phosphatase 100 (39-117) U/L Total Protein 6.1 (5.9-8.4) gm/dL Albumin 3.0 L (3.2-5.2) gm/dL Triglycerides 208 H (<150) mg/dl Calcium panel 01/19/18 Range/Units 04:33 Calcium 8.6 (8.6-10.4) mg/dl Phosphorus 2.0 L (2.7-4.5) mg/dL Albumin 3.0 L (3.2-5.2) gm/dL Pituitary panel 01/19/18 Range/Units 04:33 Sodium 140 (133-145) mmol/L Potassium 3.4 (3.3-5.1) mmol/L Chloride 102 (96-108) mmol/L Carbon Dioxide 27 (22-30) mmol/L BUN 13 (8-23) mg/dl Creatinine 0.9 (0.6-1.1) mg/dl Glucose 101 (70-105) mg/dL Calcium 8.6 (8.6-10.4) mg/dl Adrenal panel 01/19/18 Range/Units 04:33 Sodium 140 (133-145) mmol/L Potassium 3.4 (3.3-5.1) mmol/L Chloride 102 (96-108) mmol/L Carbon Dioxide 27 (22-30) mmol/L BUN 13 (8-23) mg/dl Creatinine 0.9 (0.6-1.1) mg/dl Glucose 101 (70-105) mg/dL Calcium 8.6 (8.6-10.4) mg/dl Total Bilirubin 0.5 (0.0-1.0) mg/dL AST 46 H (0-37) U/l ALT 63 H (0-40) U/l Alkaline Phosphatase 100 (39-117) U/L Total Protein 6.1 (5.9-8.4) gm/dL Albumin 3.0 L (3.2-5.2) gm/dL Assessment and Plan (1) Incarcerated ventral hernia Status: Resolved Assessment and plan: Patient is stable. ; transferred to medical floor Advanced to regular diet IV fluids were discontinued Antibiotics were discontinued Patient is stable for discharge in the morning Current Visit: Yes (2) Hypertensive renal disease Status: Chronic Current Visit: No (3) CKD (chronic kidney disease), stage III Status: Chronic Assessment and plan: Mild elevation of BUN and creatinine which will be followed closely Current Visit: No - Time Spent With Patient Total time spent is greater than 50% in coordination of care (as documented) at patient's floor/unit and/or counseling patient:
[2018-01-19] MEDS ORDERED: HYDROcodone/APAP 5/325MG TABLET PO PRN (18:02)
[2018-01-19] MEDS: QUEtiapine 25 MG TABLET PO SCH (21:51)
[2018-01-20 06:11] LABS: ALT/SGPT 42 U/l (0-40); Albumin 2.7 gm/dL (3.2-5.2); Albumin/Globulin Ratio 0.9 (1.0-2.3); Alkaline Phosphatase 84 U/L (39-117); Bilirubin,Direct < 0.2 mg/dL (0.0-0.3); Blood Urea Nitrogen 16 mg/dl (8-23); Gamma Glutamyl Transpeptidase 131 U/L (5-36); Uric Acid 4.9 mg/dL (2.5-8.0)
[2018-01-20] MEDS: LORazepam 1 MG TABLET PO SCH (09:44)
[2018-01-20] MEDS: amLODIPine 10 MG TABLET PO SCH (09:44)
[2018-01-20] MEDS: MAGNESIUM OXIDE 400 MG TABLET PO SCH (09:44)
[2018-01-20] MEDS: LOSARTAN 50 MG TABLET PO SCH (09:44)
[2018-01-20] MEDS: TORSEMIDE 10 MG TABLET PO SCH (09:45)
[2018-01-20] MEDS: HEPARIN 5,000 UNIT/ML VIAL SQ SCH (09:45)
--- NOTE | 2018-01-20 13:20 | Discharge Summary ---
Providers - Providers Patient information: Note initiated : 01/20/18 at 1:16 pm Service Date, if different from initiated Date: [] Patient: Carey Gomez 87 y/o F admitted on 01/16/18 for Abd Pain, Knee Pain/Incarcerated Ventral Hernia. Chief Complaint: [] Date of admission: 01/15/18 Discharge date: 01/20/18 Attending physician: ROHINI Wilburn Hospitalization Hospital course: 87-year-old female transferred from the [facility] with complaint of abdominal pain nausea and vomiting. She was noted to have an incarcerated ventral hernia with small bowel obstruction. CT of the abdomen confirmed the hernia with edema of the mesentery of the small bowel. She was operated on emergently by Dr. Chelsey Martinez. The bowel was edematous but was viable. She did have a primary ventral hernia repair reinforced with [place] mesh. The patient was mildly dehydrated but this resolved very rapidly. She also had dementia which is her baseline. She had mild high blood pressure which was controlled with oral medications. Her diet was gradually advanced and she is now tolerating regular diet. She did not have any cardiorespiratory difficulties and she is discharged in satisfactory condition. Discharge diagnosis: Incarcerated ventral hernia Secondary discharge diagnosis: Small bowel obstruction due to incarcerated ventral hernia Chronic kidney disease with mild exacerbation Hypertension Dementia Reason for admission: Abdominal pain nausea and vomiting Procedures: Exploratory laparotomy with ventral hernia repair with [place] mesh Pertinent studies/significant findings: CT of abdomen and pelvis with IV contrast Complications: None Exam Temp Pulse Resp BP Pulse Ox 98.0 F 86 18 113/64 91 01/20/18 11:41 01/20/18 11:41 01/20/18 11:41 01/20/18 11:41 01/20/18 11:41 - General physical appearance well developed, well nourished, no distress, chronically ill - Eyes PERRL, normal ocular movement - ENT normal pinna, normal nares, normal mucosa, no congestion, decreased hearing, poor half-way - Head Head exam IM: Present: atraumatic, normal inspection, normocephalic - Neck no masses, no bruits, trachea midline, no lymphadectomy, no venous distension - Cardiovascular Cardiovascular exam IM: Present: normal rate and rhythm, RRR, +S1, +S2. Absent : JVD - Respiratory normal expansion, normal respiratory effort, clear to percussion, clear to auscultation - Abdomen Abdomen: Present: soft, tender (Mild tenderness along incision but incision is healing uneventfully), bowel sounds ( good active bowel sounds throughout) Hernia: Present: none - Genitourinary Present: normal external genitalia - Integumentary Present: no rash, no growths, no abnormal pigmentation - Neurologic Present: normal coordination, normal sensation, disoriented, confused, memory loss - Musculoskeletal Present: normal gait, normal posture - Psychiatric Present: oriented to place, speech is normal Discharge Plan - Patient/Caregiver Discharge Instructions Activity: as per physical therapy, increase activity as tolerated Diet: Regular Diet Additional Instructions: Leave dressing intact until she returns to the office in 1 week Empty LA drain once every 1-2 days as needed. It will be removed when she returns to the office - Follow up Plan Follow up with: Samson Lua MD [Physician] - (Call/schedule to be seen in ) Ventura Melendez MD [Primary Care Provider] - Disposition: Xfer SNF Prognosis: Good Rehab Potential: Good I certify that the patient requires SNF services.: No Overall status at discharge: patient is not back to baseline Pending Studies Resuscitation Status Full Code Diet Regular Diet Start Abigail Jan 19 1754 Hydrocodone Bitart/Acetaminophen (Davy 5/325mg) 1 tab PO Q8HP PRN PRN Reason: pain Last Admin: 01/20/18 09:52 Dose: 1 tab Amlodipine Besylate (Norvasc) 10 mg PO QDAY [facility] Last Admin: 01/20/18 09:44 Dose: 10 mg Admin: 01/19/18 09:16 Dose: 10 mg Heparin Sodium (Porcine) (Heparin) 5,000 unit SQ Q12 [facility] Last Admin: 01/20/18 09:45 Dose: 5,000 unit Admin: 01/19/18 21:51 Dose: 5,000 unit Admin: 01/19/18 09:16 Dose: 5,000 unit Admin: 01/18/18 21:03 Dose: 5,000 unit Lorazepam (Ativan) 1 mg PO QAM [facility] Last Admin: 01/20/18 09:44 Dose: 1 mg Admin: 01/19/18 09:16 Dose: 1 mg Losartan Potassium (Cozaar) 100 mg PO DAILY [facility] Last Admin: 01/20/18 09:44 Dose: 100 mg Admin: 01/19/18 09:15 Dose: 100 mg Magnesium Oxide (Magnesium Oxide) 400 mg PO BID [facility] Last Admin: 01/20/18 09:44 Dose: 400 mg Admin: 01/19/18 21:51 Dose: 400 mg Admin: 01/19/18 09:16 Dose: 400 mg Admin: 01/18/18 21:03 Dose: 400 mg Quetiapine Fumarate (Seroquel) 75 mg PO HS [facility] Last Admin: 01/19/18 21:51 Dose: 75 mg Admin: 01/18/18 21:03 Dose: 75 mg Torsemide (Demadex) 40 mg PO DAILY [facility] Last Admin: 01/20/18 09:45 Dose: 40 mg Admin: 01/19/18 09:15 Dose: 40 mg Shift Summary 01/20/18 04:21 Shift Summary by Matthew,Estelita Alert, oriented to self only tonight and can be forgetful. Hx of Alzeimers. At baseline she is non-ambulatory d/t weakness. She becomes impatient and agitated easily during cares. Pivot transfers with 2 assist, gait belt, FWW to chair/ BSC. Lamar removed at 2200. Last bladder scan @ 0400 was 336-440ml, she denied feeling the need to void and refused to get up to the BSC to try. Will attempt to get her up to void before shift change. Midline abdominal incision with ian, covered with gauze dressing. LA drain to RLQ with 35ml serosanguinous drainage out tonight. Sometimes uses call light but will also call out for help. No c/o pain tonight. Her IV infiltrated yesterday and new IV attempts failed, so Dr. Lua d/c'ed all IV fluids and abx. She will d/c back to [facility] today. Initialized on 01/20/18 04:21 - END OF NOTE
== END 2018-01-20 14:25 | DRG 353 ==
LOC: ED 14:38 → SUR 20:07 → ED 20:08 → ICU 01-16 00:23 → MEDSUR 01-19 04:15
PROVIDERS: ADMIT Internal Medicine; ATTEND Family Medicine Adult Medicine